=== PATIENT | male | born 1955 | race Caucasian/White ===

== ENCOUNTER 2018-02-08 06:20 | Inpatient (IN) ==
[2018-02-08] MEDS ORDERED: Acetaminophen 500 MG Tablet PO PRN (11:54)
[2018-02-08] MEDS ORDERED: Vancomycin Consult Pharmacy 1 EACH OTHER SCH (12:00)
[2018-02-08] MEDS ORDERED: Dextrose 50% in Water 50 ML Vial IV.PUSH PRN (13:51)
--- NOTE | 2018-02-08 13:56 | P.HP ---
History of Present Illness Primary Care Physician: No Primary Care Physician Chief Complaint: Chest pain History of Present Illness: 62-year-old male with known history of hypertension, hyperlipidemia, diabetes, diabetic neuropathy who presented to the emergency department for evaluation of chest pain. Patient states that his original symptoms started 5 days ago when he started developing in sore spot on his left rib cage in the mid axillary line. It started progressively getting larger and started having increased pain spreading into his anterior chest. He had been using drawing salve on it without any significant improvement. And last night approximately 730 he started developing pain in the middle part of his chest that is radiating into his back with associated nausea, intermittent diaphoresis. Denies any shortness of breath or dyspnea. States that the pain was 8/10 on a pain scale and remained constant since last evening. Patient can follow that the pain was because of the infection in abscess that he has on the left side of the rib cage. Patient did have workup done emergency department and found to have leukocytosis and cellulitis. Cardiac workup was unremarkable. EKG showed normal sinus rhythm. Is recommended that the patient be observed in the hospital for further evaluation and management. - Diagnosis (1) Chest pain (2) Cellulitis of axilla, left (3) Leukocytosis Review of Systems All other systems reviewed negative except as stated in HPI Cardiovascular: Reports chest pain Skin/Breast: Reports change in skin color, Reports redness, Reports skin pain, Reports sores PMFSH - History History Provided By: Patient - Medical History Medical History: Medical History (Last Updated 02/08/18 @ 13:35 by ASHU Esquivel) Varicella keratitis Diabetes High cholesterol History of gallbladder disease Hypertension Neuropathic arthritis due to secondary diabetes - Surgical History Surgical History: Surgical History (Last Updated 02/08/18 @ 06:32 by Carissa Sanon RN) History of surgical procedure on mouth Hx of knee surgery - Family History Family History: Family History (Last Updated 02/08/18 @ 13:35 by ASHU Esquivel) Father Family history of lung cancer Mother Family history of renal failure - Tobacco History Second Hand Smoke Exposure: No Smoking Status: Former smoker - Alcohol History How Often Do You Have a Drink Containing Alcohol: Monthly or less - Substance Use History Substance History: No History of Abuse - Immunization History Tetanus Immunization Year if Known: 2016 Medications and Allergies Active Medications: Active Medications Acetaminophen (Tylenol) 500 mg PO Q4H PRN PRN Reason: HEADACHE Hydrocodone Bitart/Acetaminophen ([place] 7.5/325) 1 tab PO Q4H PRN PRN Reason: PAIN SCALE 1 TO 7 Aspirin (Aspirin) 325 mg PO DAILY [facility] Pharmacy Profile Note (Vancomycin Consult Pharmacy) 0 mls @ 0 mls/hr OTHER UNSCH [facility] Vancomycin HCl 1,900 mg/ (Sodium Chloride) 519 mls @ 250 mls/hr IV.SIG Q18H [facility] Miscellaneous Information [place] [place] Lab Info) 1 each OTHER ONCE ONE Stop: 02/10/18 20:46 Morphine Sulfate (Morphine Inj) 2 mg IV.PUSH Q4H PRN PRN Reason: PAIN 8-10 Nitroglycerin (Nitrostat Sl) 0.4 mg SL Q5M PRN PRN Reason: CHEST PAIN Ondansetron HCl (Zofran Inj) 4 mg IV.PUSH Q6H PRN PRN Reason: NAUSEA Sodium Chloride (Ns Flush) 2 ml IV.FLUSH PRN PRN PRN Reason: FLUSH AFTER USING IV ACCESS Sodium Chloride (Ns Flush) 2 ml IV.FLUSH BID [facility] Allergies Allergy/AdvReac Type Severity Reaction Status Date / Time Penicillins Allergy Severe Anaphylaxis Verified 02/08/18 06:29 Home Medications Medication Instructions Recorded Confirmed Type amlodipine 5 mg PO DAILY 02/08/18 02/08/18 History hydrochlorothiazide 12.5 mg PO DAILY 02/08/18 02/08/18 History lisinopril 30 mg PO DAILY 02/08/18 02/08/18 History metformin 500 mg PO TID 02/08/18 02/08/18 History simvastatin 20 mg PO QPM 02/08/18 02/08/18 History Exam Vital signs: Vital Signs 02/08/18 11:04 Temperature 96.8 F L Pulse Rate 79 Respiratory Rate 20 Blood Pressure 131/71 Pulse Oximetry 96 Intake & Output 02/07/18 02/08/18 02/08/18 18:59 06:59 18:59 Weight 106.3 kg Other: Weight On Admission 106.3 kg Narrative: GENERAL: Well-developed, well-nourished, in no acute distress. alert and orientated HEENT: Head is normocephalic without any lesions or masses noted. Facial features are symmetric. Eyes: Pupils equal round reactive to light. Extraocular muscles are intact. Conjunctivae were clear. Oropharyngeal: Pharynx without any erythema edema. Tongue is midline without deviation. Buccal mucosa is moist without any masses or lesions NECK: Supple without any masses. Trachea midline no deviation. No JVD, no bruits are appreciated CARDIAC: Regular rhythm, regular rate. S1/S2 are heard. No murmurs gallops or rubs. LUNGS: Clear to auscultation bilaterally. No wheeze, rhonchi or rales. No use of accessory muscles on inspiration or expiration. ABDOMEN: Soft, nontender. Nondistended. Bowel sounds heard in all 4 quadrants. No organomegaly or masses. Negative rebound, negative guarding EXTREMITIES: No edema, pulses are equal bilaterally. No cyanosis or clubbing NEUROLOGY: Mood and affect appear appropriate. Cranial nerves II through XII grossly intact. Muscle strength 5/5 in upper and lower extremities bilaterally. Deep tendon reflexes are 2+ in upper and lower extremities bilaterally. SKIN: Left axilla does have a discolored area measuring 1.5 x 2 cm with mild serosanguineous drainage. There is hard granulated tissue noted measuring approximately 3 cm out around the opening with erythema also spreading approximately 10 cm around the area. Caprini VTE Risk Assessment Caprini VTE Risk Assessment: Moderate/High Risk (score >= 2) Caprini Risk Assessment Model: Point Value = 1 Point Value = 2 Point Value = 3 Point Value = 5 Age 41-60 Minor surgery BMI > 25 kg/m2 Swollen legs Varicose veins or History of unexplained or recurrent spontaneous Oral contraceptives or hormone replacement Sepsis (< 1 month) Serious lung disease, including pneumonia (< 1 month) Abnormal pulmonary function Acute myocardial infarction Congestive heart failure (< 1 month) History of inflammatory bowel disease Medical patient at bed rest Age 61-74 Arthroscopic surgery Major open surgery (> 45 min) Laparoscopic surgery (> 45 min) Malignancy Confined to bed (> 72 hours) Immobilizing plaster cast Central venous access Age >= 75 History of VTE Family history of VTE Factor V Leiden Prothrombin [id number] Lupus anticoagulant Anticardiolipin antibodies Elevated serum homocysteine Heparin-induced thrombocytopenia Other congenital or acquired thrombophilia Stroke (< 1 month) Elective arthroplasty Hip, pelvis, or leg fracture Acute spinal cord injury (< 1 month) Prophylaxis Regimen: Total Risk Factor Score Risk Level Prophylaxis Regimen 0-1 Low Early ambulation 2 Moderate Order ONE of the following: *Sequential Compression Device (SCD) *Heparin 5000 units SQ BID 3-4 Higher Order ONE of the following medications: *Heparin 5000 units SQ TID *Enoxaparin/Lovenox 40 mg SQ daily (WT < 150 kg, CrCl > 30 mL/min) *Enoxaparin/Lovenox 30 mg SQ daily (WT < 150 kg, CrCl > 10-29 mL/min) *Enoxaparin/Lovenox 30 mg SQ BID (WT < 150 kg, CrCl > 30 mL/min) AND/OR *Sequential Compression Device (SCD) 5 or more Highest Order ONE of the following medications: *Heparin 5000 units SQ TID (Preferred with Epidurals) *Enoxaparin/Lovenox 40 mg SQ daily (WT < 150 kg, CrCl > 30 mL/min) *Enoxaparin/Lovenox 30 mg SQ daily (WT < 150 kg, CrCl > 10-29 mL/min) *Enoxaparin/Lovenox 30 mg SQ BID (WT < 150 kg, CrCl > 30 mL/min) AND *Sequential Compression Device (SCD) Assessment and Plan - Assessment (1) Chest pain Code(s): R07.9 - Chest pain, unspecified Status: Acute (2) Cellulitis of axilla, left Code(s): L03.112 - Cellulitis of left axilla Status: Acute (3) Leukocytosis Code(s): D72.829 - Elevated white blood cell count, unspecified Status: Acute - Plan Chest pain, atypical -Patient with increased risk factors include age, male, hypertension, hyperlipidemia, diabetes -Patient been ruled out for acute coronary event with serial cardiac enzymes that have remained negative -Serial EKGs reviewed by myself which shows sinus rhythm without any changes -Myocardial perfusion study was performed and indicated -Patient will continue on aspirin, nitroglycerin as needed, [place] and morphine for pain -Continue monitor telemetry -Continue O2 supplementation if needed Left thorax cellulitis with possible underlying abscess -Obtain ultrasound soft tissue -Start vancomycin IV with pharmacy consult -Obtain culture -Obtain blood cultures Leukocytosis -Likely secondary to above infection -No signs of sepsis at this time -Monitor CBC Hypertension, hyperlipidemia -Continue home medications Diabetes -Accu-Cheks with sliding scale insulin -Diabetic diet DVT prevention -Sequential compression devices
[2018-02-08 14:52] LABS: Creatine Kinase 88 U/L (39-308)
[2018-02-08] MEDS ORDERED: Regadenoson Inj 0.4 MG/5 ML Syringe IV.PUSH ONE (15:34)
--- NOTE | 2018-02-08 16:24 | US ---
EXAM DATE: 02/08/2018 3:15 PM EDT AGE/SEX: 62 years / Male INDICATIONS: Redness and pain left inferior axilla. CLINICAL DATA: This is the patient's initial encounter. Patient reports that signs and symptoms have been present for 4 - 6 days and indicates a pain score of 10/10. MEDICAL/SURGICAL HISTORY: . Hypertension. Diabetic. Diabetic neuropathy. . Knee surgery. COMPARISON: No prior exams available for comparison. FINDINGS: Sonographic evaluation of the axilla on the left in the area of palpable concern was performed. Just deep to the skin surface there is a complex area of questionable liquefactive tissue. It measures 4.3 x 2.9 x 1.2 cm. A discrete abscess is not currently observed. There is a tract leading to the overly ing skin surface. CONCLUSION: 1. Phlegmon without discrete abscess currently. There is an overlying tract to the skin surface. Electronically signed by: Keith Felix MD 02/08/2018 4:23 PM EDT
--- NOTE | 2018-02-08 16:58 | NM ---
EXAM DATE: 02/08/2018 4:43 PM EDT AGE/SEX: 62 years / Male INDICATIONS:Angina. . Midchest pain. CLINICAL DATA: This is the patient's initial encounter. Patient reports that signs and symptoms have been present for 1 day and indicates a pain score of 8/10. MEDICAL/SURGICAL HISTORY: Diabetes mellitus type II. Hypertension. . Knee surgery. COMPARISON: No prior exams available for comparison. DOSE: 11 mCi Tc 99m Myoview at rest 35 mCi [id number] at stress 0.4 mg Lexiscan STRESS SYMPTOMS: None. EJECTION FRACTION: 52 % TECHNIQUE: The patient underwent pharmacologic stress with infusion of prescribed dose. Continuous ECG tracing was monitored during stress. Gated SPECT imaging was performed after stress and conventi onal SPECT imaging was performed at rest. The examination was performed on a SPECT/CT scanner, both attenuation and non-corrected datasets were reviewed. FINDINGS: Distribution: The maximum perfused segment at stress is in the lateral wall. Perfusion Study: The pattern of perfusion at stress is within normal limits. Gated Study: There are intact wall motion and wall thickening without hypokinetic or dyskinetic segm ents. The ejection fraction is calculated at 52%. RISK CATEGORY: Low (<1% Annual Motality Rate) CONCLUSION: 1. Negative examination. 2. No evidence of stressed induced or resting perfusion abnormalities. 3. Normal ejection fraction and wall motion. Electronically signed by: Alexandru Mckeon MD 02/08/2018 4:57 PM EDT
[2018-02-08] MEDS: Insulin NovoLOG Aspart Correctional Sugar Inj SQ SCH ×2 (17:21→20:27)
[2018-02-08] MEDS: Vancomycin Inj 1,900 MG in Sodium Chlor 0.9% Inj 500 ML IV.SIG SCH (17:23)
[2018-02-08 17:50] LABS: Creatine Kinase 88 U/L (39-308)
[2018-02-09 06:45] LABS: Baso % (Auto) 0.3 % (0.0-2.0); Eos # (Auto) 0.2 th/mm3 (0.0-0.4); Eos % (Auto) 1.2 % (0.0-4.0); Hematocrit 35.4 % (39.0-51.0); Hemoglobin 12.1 gm/dL (13.0-17.0); Lymph # (Auto) 1.4 th/mm3 (1.0-4.8); Lymph % (Auto) 10.4 % (9.0-44.0); Mean Corpuscular HGB Conc 34.3 % (32.0-36.0); Mean Corpuscular Hemoglobin 30.7 pg (27.0-34.0); Mean Corpuscular Volume 89.4 fL (80.0-100.0); Mean Platelet Volume 8.7 fL (7.0-11.0); Mono # (Auto) 1.5 th/mm3 (0.0-0.9); Mono % (Auto) 11.7 % (0.0-8.0); Neut % (Auto) 76.4 % (16.0-70.0); Platelet Count 358 th/mm3 (150-450); Red Blood Count 3.95 mil/mm3 (4.50-5.90); Red Cell Distribution Width 12.2 % (11.6-17.2); White Blood Count 13.1 th/mm3 (4.0-11.0)
[2018-02-09 07:45] LABS: Potassium 3.2 meq/L (3.5-5.1)
[2018-02-09 07:47] LABS: Calcium 8.1 mg/dL (8.5-10.1)
[2018-02-09 07:48] LABS: Carbon Dioxide 27.4 meq/L (21.0-32.0)
[2018-02-09] MEDS: Insulin NovoLOG Aspart Correctional Sugar Inj SQ SCH ×4 (08:11→21:11)
--- NOTE | 2018-02-09 08:40 | P.PN ---
Subjective Interval history: 62-year-old male seen in follow-up today on chest pain, left axilla abscess. Patient no longer experiencing any active chest pain. However he states that the area in the left thorax lacks axilla is significantly getting bigger with unbearable pain. Vital signs are stable, patient remains afebrile Physical Exam Vital signs: Vital Signs 02/08/18 11:04 02/08/18 15:21 02/08/18 20:00 Temperature 96.8 F L 96.8 F L 96.6 F L Pulse Rate 79 76 77 Respiratory Rate 20 20 18 Blood Pressure 131/71 128/65 155/88 H Pulse Oximetry 96 96 95 02/08/18 20:30 02/09/18 00:00 02/09/18 07:47 Temperature 98.8 F 99.3 F Pulse Rate 76 82 Respiratory Rate 18 18 Blood Pressure 114/64 130/75 Pulse Oximetry 95 95 98 02/09/18 07:48 Temperature Pulse Rate Respiratory Rate Blood Pressure Pulse Oximetry 95 Intake & Output 02/08/18 02/09/18 02/09/18 18:59 06:59 18:59 Intake Total 240 / 240 1759 / 1759 Balance 240 / 240 1759 / 1759 Weight 106.3 kg 106.4 kg Intake: IV 1519 / 1519 NS + KCl 20 mEq Inj 1,000 ML @ 1000 / 1000 84 mls/hr IV.CONT .[id number] [facility] Rx#:[id number] Vancomycin Inj 1,900 MG In NS 519 / 519 Inj 500 ML @ 250 mls/hr IV.SIG Q18H [facility] Rx#:[id number] Oral 240 / 240 240 / 240 Other: # Voids 2 1 Weight On Admission 106.3 kg Narrative: GENERAL: Well-developed, well-nourished, in no acute distress. alert and orientated HEENT: Head is normocephalic without any lesions or masses noted. Facial features are symmetric. Eyes: Extraocular muscles are intact. Conjunctivae were clear. NECK: Supple without any masses. Trachea midline no deviation. No JVD, CARDIAC: Regular rhythm, regular rate. S1/S2 are heard. No murmurs gallops or rubs. LUNGS: Clear to auscultation bilaterally. No wheeze, rhonchi or rales. No use of accessory muscles on inspiration or expiration. ABDOMEN: Soft, nontender. Nondistended. Bowel sounds heard in all 4 quadrants. No organomegaly or masses. Negative rebound, negative guarding EXTREMITIES: No edema, pulses are equal bilaterally. No cyanosis or clubbing NEUROLOGY: Mood and affect appear appropriate. Cranial nerves II through XII grossly intact. Moving all extremities, speech is clear SKIN: Left axilla does have a discolored area measuring 1.5 x 2 cm with mild serosanguineous drainage. There is hard granulated tissue which has significantly gotten worse and measuring approximately 6 cm. No significant fluctuant area was appreciated. Erythema surrounding the area has significantly improved Results - Labs CBC & Chem 7: 02/09/18 05:25 02/09/18 05:25 Laboratory Results - last 24 hr 02/08/18 02/08/18 02/08/18 13:01 13:47 16:38 CBC w Diff WBC RBC Hgb Hct MCV MCH MCHC RDW Plt Count MPV Neut % (Auto) Lymph % (Auto) [place] % (Auto) Eos % (Auto) Baso % (Auto) Neut # (Auto) Lymph # (Auto) [place] # (Auto) Eos # (Auto) Baso # (Auto) WBC Differential Differential Comment Sodium Potassium Chloride Carbon Dioxide Anion Gap BUN Creatinine Estimated GFR POC Glucose 171 H 201 H Random Glucose Calcium Total Creatine Kinase 88 Troponin I Less than 0.02 L 02/08/18 02/08/18 02/09/18 17:05 20:26 05:25 CBC w Diff WBC RBC Hgb Hct MCV MCH MCHC RDW Plt Count MPV Neut % (Auto) Lymph % (Auto) [place] % (Auto) Eos % (Auto) Baso % (Auto) Neut # (Auto) Lymph # (Auto) [place] # (Auto) Eos # (Auto) Baso # (Auto) WBC Differential Differential Comment Sodium 139 Potassium 3.2 L Chloride 104 Carbon Dioxide 27.4 Anion Gap 8 BUN 16 Creatinine 0.95 Estimated GFR 80 L POC Glucose 199 H Random Glucose 147 H Calcium 8.1 L Total Creatine Kinase 88 Troponin I Less than 0.02 L 02/09/18 02/09/18 05:25 07:56 CBC w Diff Auto diff final WBC 13.1 H RBC 3.95 L Hgb 12.1 L Hct 35.4 L MCV 89.4 MCH 30.7 MCHC 34.3 RDW 12.2 Plt Count 358 MPV 8.7 Neut % (Auto) 76.4 H Lymph % (Auto) 10.4 [place] % (Auto) 11.7 H Eos % (Auto) 1.2 Baso % (Auto) 0.3 Neut # (Auto) 10.0 H Lymph # (Auto) 1.4 [place] # (Auto) 1.5 H Eos # (Auto) 0.2 Baso # (Auto) 0.0 WBC Differential . Differential Comment . Sodium Potassium Chloride Carbon Dioxide Anion Gap BUN Creatinine Estimated GFR POC Glucose 160 H Random Glucose Calcium Total Creatine Kinase Troponin I - Imaging Impressions Myocardial Perfusion Scan Nuc Med 02/08/18 00:00 CONCLUSION: 1. Negative examination. 2. No evidence of stressed induced or resting perfusion abnormalities. 3. Normal ejection fraction and wall motion. Soft Tissue Ultrasound 02/08/18 00:00 CONCLUSION: 1. Phlegmon without discrete abscess currently. There is an overlying tract to the skin surface. Assessment and Plan - Assessment (1) Chest pain Code(s): R07.9 - Chest pain, unspecified Status: Inactive (2) Cellulitis of axilla, left Code(s): L03.112 - Cellulitis of left axilla Status: Inactive (3) Leukocytosis Code(s): D72.829 - Elevated white blood cell count, unspecified Status: Acute - Plan Left thorax mass with cellulitis, worsening -Initial soft tissue ultrasound shows phlegmon without any abscess, due to the size worsening and more painful we obtained another ultrasound of the soft tissue which shows a heterogeneous subcutaneous collection that has increased in size since yesterday. -We will consult general surgery for further evaluation and management -Continue vancomycin IV with pharmacy consult -Wound culture with MRSA -Blood cultures negative for 1 day Leukocytosis, improving -Likely secondary to above infection -No signs of sepsis at this time -Monitor CBC Chest pain, atypical, resolved -Patient with increased risk factors include age, male, hypertension, hyperlipidemia, diabetes -Patient been ruled out for acute coronary event with serial cardiac enzymes that have remained negative -Serial EKGs reviewed by myself which shows sinus rhythm without any changes -Myocardial perfusion study was performed and indicated -Patient will continue on aspirin, nitroglycerin as needed, [place] and morphine for pain -Continue monitor telemetry -Continue O2 supplementation if needed Hypertension, hyperlipidemia -Continue home medications Diabetes -Accu-Cheks with sliding scale insulin -Diabetic diet DVT prevention -Sequential compression devices
[2018-02-09] MEDS ORDERED: Aspirin 325 MG Tablet PO SCH (09:00)
--- NOTE | 2018-02-09 09:35 | US ---
EXAM DATE: 02/09/2018 9:21 AM EDT AGE/SEX: 62 years / Male INDICATIONS: Enlarged mass left inferior axilla. CLINICAL DATA: This is the patient's subsequent encounter. Patient reports that signs and symptoms h ave been present for 4 - 6 days and indicates a pain score of 7/10. MEDICAL/SURGICAL HISTORY: . Hypertension. Diabetic. Diabetic neuropathy. . Knee surgery. COMPARISON: [facility], US SOFT TISSUE, 02/08/2018. . FINDINGS: Grayscale and color Doppler imaging was performed of the soft tissues in the inferior left axilla. Im ages document skin thickening with a heterogeneous subcutaneous hypoechoic area measuring approximate ly 4.6 x 5.0 x 1.2 cm. There is a questionable subtle tract extending to the skin surface. Color Dopp ler imaging demonstrates no significant hyperemia. This area measured approximately 4.3 x 2.9 x 1.2 c m on yesterday's ultrasound. CONCLUSION: Heterogeneous subcutaneous collection has increased in size since yesterday's examination. Again, it does not appear well organized for percutaneous drainage. The appearance is suspicious for infection. Electronically signed by: Huber Wilkins MD 02/09/2018 9:34 AM EDT
[2018-02-09 10:25] LABS: Chol/HDL Ratio 2.43 Ratio; HDL Cholesterol 39.9 mg/dL (40.0-60.0)
[2018-02-09] MEDS: Vancomycin Inj 1,900 MG in Sodium Chlor 0.9% Inj 500 ML IV.SIG SCH (11:05)
--- NOTE | 2018-02-09 16:47 | P.CONGS ---
HPI Gen Surgery Consult Note Consult date: 02/09/18 Reason for consult: other (LEFT chest wound) Requesting physician: Bandar Spicer Narrative: 62 year old male with a past medical history of hypertension, dyslipidemia, diabetes mellitus and neuropathy who presented to the [facility] ED with chest pain. He reports a small raise red bump on his LEFT midaxillary line about 5 days prior to admission. He reports no trauma to the area. He tried to express fluid from the area but with no success. A cardiac workup was completed but negative for any ischemia. An US of the midaxillary area was completed with just phlegmon like changes without define abscess. The area increased in size over the last 24 hours as well as an increase in pain. There is a small pinpoint hole in the wound. A culture was obtained and positive for MRSA. A repeat US was completed today which shows an increase in the size but not amendable to percutaneous drainage. The patient denies any fevers. He has been started on vancomycin. <Yessenia Liriano - Last Filed: 02/09/18 16:52> Review of Systems Constitutional: Denies body ache(s), Denies chills, Denies fever(s) Eyes: Denies blurry vision, Denies bulging eyes Ears, Nose, Mouth, and Throat: Denies abnormal hearing Cardiovascular: Reports chest pain (on admission), Denies foot swelling, Denies generalized swelling, Denies shortness of breath Respiratory: Denies chest congestion, Denies cough Gastrointestinal: Denies abdominal pain, Denies nausea, Denies vomiting Genitourinary: Denies urinary incontinence Musculoskeletal: Denies abnormal walking, Denies joint swelling, Denies limited joint movement Skin/Breast: Reports sores (LEFT chest wall) Neurologic: Denies lack of coordination, Denies localized weakness Psychiatric: Denies abnormal sleep pattern, Denies anxiety, Denies depression Endocrine: Denies cold intolerance, Denies heat intolerance Hematologic/Lymphatic: Denies easy bleeding Allergic/Immunologic: Denies GI upset with certain foods <Yessenia Liriano - Last Filed: 02/09/18 16:52> PMF - History History Provided By: Patient - Medical History Medical History: Medical History (Last Reviewed 02/09/18 @ 17:02 by SALLY Nevarez) Varicella keratitis Diabetes High cholesterol History of gallbladder disease Hypertension Neuropathic arthritis due to secondary diabetes - Surgical History Surgical History: Surgical History (Last Updated 02/09/18 @ 16:54 by SALLY Nevarez) Hx laparoscopic cholecystectomy History of surgical procedure on mouth Hx of knee surgery - Family History Family History: Family History (Last Updated 02/08/18 @ 13:35 by ASHU Esquivel) Father Family history of lung cancer Mother Family history of renal failure - Tobacco History Second Hand Smoke Exposure: No Smoking Status: Former smoker - Alcohol History How Often Do You Have a Drink Containing Alcohol: Monthly or less - Substance Use History Substance History: No History of Abuse - Travel History Recent Travel in the [place] Within the Last 8 Weeks: No Recent Travel Out of the Country Within the Last 8 Weeks: No - Immunization History Tetanus Immunization Year if Known: 2016 <Yessenia Liriano - Last Filed: 02/09/18 16:52> - Medical History Medical History: Medical History (Last Updated 02/10/18 @ 09:13 by Jayesh Waters MD) History of gallbladder disease (Acute) Varicella keratitis Diabetes High cholesterol Hypertension Neuropathic arthritis due to secondary diabetes - Surgical History Surgical History: Surgical History (Last Updated 02/09/18 @ 16:54 by SALLY Nevarez) Hx laparoscopic cholecystectomy History of surgical procedure on mouth Hx of knee surgery - Family History Family History: Family History (Last Updated 02/08/18 @ 13:35 by ASHU Esquivel) Father Family history of lung cancer Mother Family history of renal failure <Jayesh Waters - Last Filed: 02/10/18 09:14> Medications and Allergies Active Medications: Active Medications Acetaminophen (Tylenol) 500 mg PO Q4H PRN PRN Reason: HEADACHE Hydrocodone Bitart/Acetaminophen (Buckner 7.5/325) 1 tab PO Q4H PRN PRN Reason: PAIN SCALE 1 TO 7 Last Admin: 02/09/18 07:49 Dose: 1 tab Aspirin (Aspirin) 325 mg PO DAILY [facility] Last Admin: 02/09/18 08:11 Dose: 325 mg Dextrose (D50w Vial) 50 ml IV.PUSH UNSCH PRN PRN Reason: PER HYPOGLYCEMIA PROTOCOL Glucagon (Glucagon Inj) 1 mg OTHER PRN PRN PRN Reason: for Hypoglycemia Protocol Pharmacy Profile Note (Vancomycin Consult Pharmacy) 0 mls @ 0 mls/hr OTHER UNSCH [facility] Vancomycin HCl 1,900 mg/ (Sodium Chloride) 519 mls @ 250 mls/hr IV.SIG Q18H [facility] Last Infusion: 02/09/18 13:10 Dose: Infused Potassium Chloride/Sodium Chloride (Ns + Kcl 20 Meq Inj) 1,000 mls @ 84 mls/hr IV.CONT .[id number] [facility] Last Admin: 02/09/18 05:22 Dose: 84 mls/hr Insulin Aspart (Novolog Insulin Correctional Sugar Inj) 0 unit SQ ACHS [facility]; Protocol Last Admin: 02/09/18 11:47 Dose: 1 unit Miscellaneous Information ([facility] [place] [facility] Ordered Lab Info) 1 each OTHER ONCE ONE Stop: 02/10/18 20:46 Morphine Sulfate (Morphine Inj) 2 mg IV.PUSH Q4H PRN PRN Reason: PAIN 8-10 Nitroglycerin (Nitrostat Sl) 0.4 mg SL Q5M PRN PRN Reason: CHEST PAIN Ondansetron HCl (Zofran Inj) 4 mg IV.PUSH Q6H PRN PRN Reason: NAUSEA Sodium Chloride (Ns Flush) 2 ml IV.FLUSH PRN PRN PRN Reason: FLUSH AFTER USING IV ACCESS Sodium Chloride (Ns Flush) 2 ml IV.FLUSH BID [facility] Last Admin: 02/09/18 11:15 Dose: Not Given <Yessenia Liriano - Last Filed: 02/09/18 16:52> Active Medications: Active Medications Acetaminophen (Tylenol) 500 mg PO Q4H PRN PRN Reason: HEADACHE Hydrocodone Bitart/Acetaminophen (Buckner 7.5/325) 1 tab PO Q4H PRN PRN Reason: PAIN SCALE 1 TO 7 Last Admin: 02/10/18 02:19 Dose: 1 tab Amlodipine Besylate (Norvasc) 5 mg PO DAILY [facility] Aspirin (Aspirin) 325 mg PO DAILY [facility] Last Admin: 02/09/18 08:11 Dose: 325 mg Chlorhexidine Gluconate (Chlorhexidine 2% Cloth) 3 pack 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 [facility] Stop: 02/13/18 08:29 Dextrose (D50w Vial) 50 ml IV.PUSH UNSCH PRN PRN Reason: PER HYPOGLYCEMIA PROTOCOL Glucagon (Glucagon Inj) 1 mg OTHER PRN PRN PRN Reason: for Hypoglycemia Protocol Hydrochlorothiazide (Microzide) 12.5 mg PO DAILY [facility] Pharmacy Profile Note (Vancomycin Consult Pharmacy) 0 mls @ 0 mls/hr OTHER UNSCH [facility] Vancomycin HCl 1,900 mg/ (Sodium Chloride) 519 mls @ 250 mls/hr IV.SIG Q18H [facility] Last Infusion: 02/10/18 06:40 Dose: Infused Potassium Chloride/Sodium Chloride (Ns + Kcl 20 Meq Inj) 1,000 mls @ 84 mls/hr IV.CONT .[id number] [facility] Last Infusion: 02/09/18 18:19 Dose: Infused Lactated Ringer's (Lr 1000 Ml Inj) 1,000 mls @ 30 mls/hr IV.SIG .Q24H [facility] Stop: 02/13/18 08:29 Last Admin: 02/10/18 07:05 Dose: 30 mls/hr Sodium Chloride (Ns Inj) 500 mls @ 30 mls/hr IV.SIG .Q10H [facility] Stop: 02/13/18 08:29 Insulin Aspart (Novolog Insulin Correctional Sugar Inj) 0 unit SQ ACHS [facility]; Protocol Last Admin: 02/10/18 07:24 Dose: Not Given Lisinopril (Prinivil) 30 mg PO DAILY [facility] Metoprolol Tartrate (Lopressor) 25 mg PO SLATE WORKER [facility] Stop: 02/13/18 08:29 Miscellaneous Information ([facility] Ordered Lab Info) 1 each OTHER ONCE ONE Stop: 02/10/18 20:46 Morphine Sulfate (Morphine Inj) 2 mg IV.PUSH Q4H PRN PRN Reason: PAIN 8-10 Nitroglycerin (Nitrostat Sl) 0.4 mg SL Q5M PRN PRN Reason: CHEST PAIN Ondansetron HCl (Zofran Inj) 4 mg IV.PUSH Q6H PRN PRN Reason: NAUSEA Povidone Iodine (Betadine 5% Antisepsis Kit) 1 applicatio EACH NARE SLATE WORKER [facility] Stop: 02/13/18 08:29 Pravastatin Sodium (Pravachol) 40 mg PO QPM [facility] Last Admin: 02/09/18 18:16 Dose: 40 mg Sodium Chloride (Ns Flush) 2 ml IV.FLUSH PRN PRN PRN Reason: FLUSH AFTER USING IV ACCESS Sodium Chloride (Ns Flush) 2 ml IV.FLUSH BID [facility] Last Admin: 02/09/18 21:12 Dose: Not Given <Jayesh Waters - Last Filed: 02/10/18 09:14> Allergies Allergy/AdvReac Type Severity Reaction Status Date / Time Penicillins Allergy Severe Anaphylaxis Verified 02/10/18 07:22 Home Medications Medication Instructions Recorded Confirmed Type amlodipine 5 mg PO DAILY 02/08/18 02/09/18 History hydrochlorothiazide 12.5 mg PO DAILY 02/08/18 02/09/18 History lisinopril 30 mg PO DAILY 02/08/18 02/09/18 History metformin 500 mg PO TID 02/08/18 02/09/18 History simvastatin [Zocor] 20 mg PO QPM 02/08/18 02/09/18 History Exam Vital signs: Vital Signs 02/08/18 20:00 02/08/18 20:30 02/09/18 00:00 Temperature 96.6 F L 98.8 F Pulse Rate 77 76 Respiratory Rate 18 18 Blood Pressure 155/88 H 114/64 Pulse Oximetry 95 95 95 02/09/18 07:47 02/09/18 07:48 02/09/18 08:19 Temperature 99.3 F Pulse Rate 82 Respiratory Rate 18 18 Blood Pressure 130/75 Pulse Oximetry 98 95 02/09/18 08:41 02/09/18 12:00 02/09/18 16:00 Temperature 97.7 F 98.8 F Pulse Rate 82 73 Respiratory Rate 18 18 18 Blood Pressure 136/83 145/85 H Pulse Oximetry 98 96 Intake & Output 02/08/18 02/09/18 02/09/18 18:59 06:59 18:59 Intake Total 240 / 240 1759 / 1759 519 / 519 Balance 240 / 240 1759 / 1759 519 / 519 Weight 106.3 kg 106.4 kg Intake: IV 1519 / 1519 519 / 519 NS + KCl 20 mEq Inj 1,000 ML @ 1000 / 1000 84 mls/hr IV.CONT .[id number] [facility] Rx#:[id number] Vancomycin Inj 1,900 MG In NS 519 / 519 519 / 519 Inj 500 ML @ 250 mls/hr IV.SIG Q18H [facility] Rx#:[id number] Oral 240 / 240 240 / 240 Other: # Voids 2 1 Weight On Admission 106.3 kg Narrative: GENERAL: Very pleasant 62 year old male resting in bed in mild acute distress secondary to pain. SKIN: LEFT midaxillary region: large area of red indurated area; small pin point hole in wound with thick yellow drainage; unable to drain anything; area extremely tender; faint redness tracts to scapular area. HEAD: Atraumatic. Normocephalic. EYES: Pupils equal and round. No scleral icterus. No injection or drainage. ENT: No nasal bleeding or discharge. Mucous membranes pink and moist. NECK: Trachea midline. CARDIOVASCULAR: Regular rate and rhythm. RESPIRATORY: No accessory muscle use. Clear to auscultation. Breath sounds equal bilaterally. GASTROINTESTINAL: Abdomen soft, non-tender, nondistended. . MUSCULOSKELETAL: Extremities without clubbing, cyanosis, or edema. No obvious deformities. NEUROLOGICAL: Awake and alert. No obvious cranial nerve deficits. Motor grossly within normal limits. Five out of 5 muscle strength in the arms and legs. Normal speech. PSYCHIATRIC: Appropriate mood and affect; insight and judgment normal. <Yessenia Liriano - Last Filed: 02/09/18 16:52> Vital signs: Vital Signs 02/09/18 12:00 02/09/18 16:00 02/09/18 17:24 Temperature 97.7 F 98.8 F Pulse Rate 82 73 Respiratory Rate 18 18 18 Blood Pressure 136/83 145/85 H Pulse Oximetry 98 96 02/09/18 20:12 02/10/18 00:00 Temperature 98.1 F 96.9 F L Pulse Rate 70 69 Respiratory Rate 18 Blood Pressure 138/84 133/80 Pulse Oximetry 95 94 L Intake & Output 02/09/18 02/10/18 02/10/18 18:59 06:59 18:59 Intake Total 2819 / 2819 1259 / 1259 Balance 2819 / 2819 1259 / 1259 Weight 106.4 kg Intake: IV 2519 / 2519 1019 / 1019 NS + KCl 20 mEq Inj 1,000 ML @ 1999 / 1999 84 mls/hr IV.CONT .[id number] [facility] Rx#:[id number] Vancomycin Inj 1,900 MG In NS 519 / 519 1019 / 1019 Inj 500 ML @ 250 mls/hr IV.SIG Q18H [facility] Rx#:[id number] Oral 300 / 300 240 / 240 Other: # Voids 2 2 Date of Last Bowel Movement 02/09/18 - Routine Chest/Breast/Axilla Exam Axillae: Present: tenderness, swelling, erythema Comments: Left anterior axillary line; approx 6 x 15 cm size with pinhole drainage purulent material <Jayesh Waters - Last Filed: 02/10/18 09:14> Results - Labs 02/09/18 05:25 02/09/18 05:25 Abnormal lab results 02/08/18 02/08/18 02/08/18 Range/Units 16:38 17:05 20:26 WBC (4.0-11.0) th/mm3 RBC (4.50-5.90) mil/mm3 Hgb (13.0-17.0) gm/dL Hct (39.0-51.0) % Neut % (Auto) (16.0-70.0) % Otero % (Auto) (0.0-8.0) % Neut # (Auto) (1.8-7.7) th/mm3 Otero # (Auto) (0.0-0.9) th/mm3 Potassium (3.5-5.1) meq/L Estimated GFR (>89) mL/min POC Glucose 201 H 199 H (68-110) mg/dl Random Glucose (74-106) mg/dL Calcium (8.5-10.1) mg/dL Troponin I Less than 0.02 L (0.02-0.05) ng/mL Cholesterol (120-200) mg/dL HDL Cholesterol (40.0-60.0) mg/dL 02/09/18 02/09/18 02/09/18 Range/Units 05:25 05:25 05:25 WBC 13.1 H (4.0-11.0) th/mm3 RBC 3.95 L (4.50-5.90) mil/mm3 Hgb 12.1 L (13.0-17.0) gm/dL Hct 35.4 L (39.0-51.0) % Neut % (Auto) 76.4 H (16.0-70.0) % Otero % (Auto) 11.7 H (0.0-8.0) % Neut # (Auto) 10.0 H (1.8-7.7) th/mm3 Otero # (Auto) 1.5 H (0.0-0.9) th/mm3 Potassium 3.2 L (3.5-5.1) meq/L Estimated GFR 80 L (>89) mL/min POC Glucose (68-110) mg/dl Random Glucose 147 H (74-106) mg/dL Calcium 8.1 L (8.5-10.1) mg/dL Troponin I (0.02-0.05) ng/mL Cholesterol 97 L (120-200) mg/dL HDL Cholesterol 39.9 L (40.0-60.0) mg/dL 02/09/18 02/09/18 Range/Units 07:56 11:37 WBC (4.0-11.0) th/mm3 RBC (4.50-5.90) mil/mm3 Hgb (13.0-17.0) gm/dL Hct (39.0-51.0) % Neut % (Auto) (16.0-70.0) % Otero % (Auto) (0.0-8.0) % Neut # (Auto) (1.8-7.7) th/mm3 Otero # (Auto) (0.0-0.9) th/mm3 Potassium (3.5-5.1) meq/L Estimated GFR (>89) mL/min POC Glucose 160 H 167 H (68-110) mg/dl Random Glucose (74-106) mg/dL Calcium (8.5-10.1) mg/dL Troponin I (0.02-0.05) ng/mL Cholesterol (120-200) mg/dL HDL Cholesterol (40.0-60.0) mg/dL Diabetes panel 02/09/18 02/09/18 Range/Units 05:25 05:25 Sodium 139 (136-145) meq/L Potassium 3.2 L (3.5-5.1) meq/L Chloride 104 (98-107) meq/L Carbon Dioxide 27.4 (21.0-32.0) meq/L BUN 16 (7-18) mg/dL Creatinine 0.95 (0.60-1.30) mg/dL Calcium 8.1 L (8.5-10.1) mg/dL Triglycerides 110 (42-150) mg/dL HDL Cholesterol 39.9 L (40.0-60.0) mg/dL Calcium panel 02/09/18 Range/Units 05:25 Calcium 8.1 L (8.5-10.1) mg/dL Pituitary panel 02/09/18 Range/Units 05:25 Sodium 139 (136-145) meq/L Potassium 3.2 L (3.5-5.1) meq/L Chloride 104 (98-107) meq/L Carbon Dioxide 27.4 (21.0-32.0) meq/L BUN 16 (7-18) mg/dL Creatinine 0.95 (0.60-1.30) mg/dL Calcium 8.1 L (8.5-10.1) mg/dL Adrenal panel 02/09/18 Range/Units 05:25 Sodium 139 (136-145) meq/L Potassium 3.2 L (3.5-5.1) meq/L Chloride 104 (98-107) meq/L Carbon Dioxide 27.4 (21.0-32.0) meq/L BUN 16 (7-18) mg/dL Creatinine 0.95 (0.60-1.30) mg/dL Calcium 8.1 L (8.5-10.1) mg/dL All other labs normal. - Imaging Additional studies: LEFT axillary US x2 <Yessenia Liriano - Last Filed: 02/09/18 16:52> - Labs 02/10/18 06:13 02/10/18 06:09 Abnormal lab results 02/09/18 02/09/18 02/09/18 Range/Units 05:25 11:37 16:57 RBC (4.50-5.90) mil/mm3 Hgb (13.0-17.0) gm/dL Hct (39.0-51.0) % Neut % (Auto) (16.0-70.0) % Otero % (Auto) (0.0-8.0) % Neut # (Auto) (1.8-7.7) th/mm3 Otero # (Auto) (0.0-0.9) th/mm3 Chloride (98-107) meq/L POC Glucose 167 H 143 H (68-110) mg/dl Random Glucose (74-106) mg/dL Calcium (8.5-10.1) mg/dL Cholesterol 97 L (120-200) mg/dL HDL Cholesterol 39.9 L (40.0-60.0) mg/dL 02/09/18 02/10/18 02/10/18 Range/Units 21:07 06:09 06:13 RBC 3.73 L (4.50-5.90) mil/mm3 Hgb 11.4 L (13.0-17.0) gm/dL Hct 34.3 L (39.0-51.0) % Neut % (Auto) 77.5 H (16.0-70.0) % Otero % (Auto) 10.0 H (0.0-8.0) % Neut # (Auto) 8.4 H (1.8-7.7) th/mm3 Otero # (Auto) 1.1 H (0.0-0.9) th/mm3 Chloride 108 H (98-107) meq/L POC Glucose 205 H (68-110) mg/dl Random Glucose 163 H (74-106) mg/dL Calcium 8.1 L (8.5-10.1) mg/dL Cholesterol (120-200) mg/dL HDL Cholesterol (40.0-60.0) mg/dL 02/10/18 Range/Units 06:36 RBC (4.50-5.90) mil/mm3 Hgb (13.0-17.0) gm/dL Hct (39.0-51.0) % Neut % (Auto) (16.0-70.0) % Otero % (Auto) (0.0-8.0) % Neut # (Auto) (1.8-7.7) th/mm3 Otero # (Auto) (0.0-0.9) th/mm3 Chloride (98-107) meq/L POC Glucose 151 H (68-110) mg/dl Random Glucose (74-106) mg/dL Calcium (8.5-10.1) mg/dL Cholesterol (120-200) mg/dL HDL Cholesterol (40.0-60.0) mg/dL Diabetes panel 02/09/18 02/10/18 Range/Units 05:25 06:09 Sodium 143 (136-145) meq/L Potassium 4.2 D (3.5-5.1) meq/L Chloride 108 H (98-107) meq/L Carbon Dioxide 29.6 (21.0-32.0) meq/L BUN 14 (7-18) mg/dL Creatinine 0.80 (0.60-1.30) mg/dL Calcium 8.1 L (8.5-10.1) mg/dL Triglycerides 110 (42-150) mg/dL HDL Cholesterol 39.9 L (40.0-60.0) mg/dL Calcium panel 02/10/18 Range/Units 06:09 Calcium 8.1 L (8.5-10.1) mg/dL Pituitary panel 02/10/18 Range/Units 06:09 Sodium 143 (136-145) meq/L Potassium 4.2 D (3.5-5.1) meq/L Chloride 108 H (98-107) meq/L Carbon Dioxide 29.6 (21.0-32.0) meq/L BUN 14 (7-18) mg/dL Creatinine 0.80 (0.60-1.30) mg/dL Calcium 8.1 L (8.5-10.1) mg/dL Adrenal panel 02/10/18 Range/Units 06:09 Sodium 143 (136-145) meq/L Potassium 4.2 D (3.5-5.1) meq/L Chloride 108 H (98-107) meq/L Carbon Dioxide 29.6 (21.0-32.0) meq/L BUN 14 (7-18) mg/dL Creatinine 0.80 (0.60-1.30) mg/dL Calcium 8.1 L (8.5-10.1) mg/dL All other labs normal. <Jayesh Waters - Last Filed: 02/10/18 09:14> Assessment and Plan - Plan 62 year old male with large LEFT midaxillary indurated area; ? abscess -Has been antibiotics for greater than 24 without improvement -Would benefit from I&D and Wound Vac placement in OR -Continue Vancomycin -NPO after MN -Obtain consents -Hold anticoagulation -Discussed procedure with patient including risk and benefits; all questions answered -Thank you for this consult; We will continue to follow Discussed Condition With: Dr. Eric WAKEFIELD Mr. Gagnon <Yessenia Liriano - Last Filed: 02/09/18 16:52> - Plan Significant area induration with drainage and pain; no improvement. Discussed GAR with patient; he agrees to proceed with surgery. - Attending Attestation The exam, history, and the medical decision-making described in the above note were completed with the assistance of the mid-level provider. I reviewed and agree with the findings presented. I attest that I had a [id number] encounter with the patient on the same day, and personally performed and documented my assessment and findings in the medical record. <Jayesh Waters - Last Filed: 02/10/18 09:14>
--- NOTE | 2018-02-09 19:27 | ECG ---
Date Performed: 02/08/2018 Time Performed: 13:09:51 PTAGE: 62 years EKG: Sinus rhythm NONSPECIFIC T-WAVE ABNORMALITY BORDERLINE ECG Since PREVIOUS TRACING , no significant change noted DOCTOR: Eloise Montes Interpretating Date/Time 02/09/2018 19:26:10
--- NOTE | 2018-02-09 19:27 | TR ---
Date Performed: 02/08/2018 Time Performed: 15:58:14 DOCTOR: Eloise Montes DRUG LIST: CLINICAL HISTORY: REASON FOR TEST: REASON FOR ENDING: OBSERVATION: CONCLUSION: Lexiscan stress test was performed under standard four minute protocol. Radionuclid e was injected one minute prior to ending the test. No electrocardiographic abormalities were present to suggest ischemia. Nuclear imaging and interpretation are pending. COMMENTS: No ischemia
--- NOTE | 2018-02-09 19:28 | ECG ---
Date Performed: 02/08/2018 Time Performed: 17:05:19 PTAGE: 62 years EKG: Sinus rhythm NONSPECIFIC T-WAVE ABNORMALITY BORDERLINE ECG Since PREVIOUS TRACING , no significant change noted PREVIOUS TRACIN02/08/2018 13.09 DOCTOR: Eloise Montes Interpretating Date/Time 02/09/2018 19:27:52
[2018-02-10] MEDS: Vancomycin Inj 1,900 MG in Sodium Chlor 0.9% Inj 500 ML IV.SIG SCH ×2 (02:20→21:30)
[2018-02-10 06:33] LABS: Baso % (Auto) 0.3 % (0.0-2.0); Eos # (Auto) 0.3 th/mm3 (0.0-0.4); Eos % (Auto) 2.7 % (0.0-4.0); Hematocrit 34.3 % (39.0-51.0); Hemoglobin 11.4 gm/dL (13.0-17.0); Lymph % (Auto) 9.5 % (9.0-44.0); Mean Corpuscular HGB Conc 33.2 % (32.0-36.0); Mean Corpuscular Hemoglobin 30.5 pg (27.0-34.0); Mean Platelet Volume 7.8 fL (7.0-11.0); Mono # (Auto) 1.1 th/mm3 (0.0-0.9); Neut # (Auto) 8.4 th/mm3 (1.8-7.7); Neut % (Auto) 77.5 % (16.0-70.0); Platelet Count 371 th/mm3 (150-450); Red Blood Count 3.73 mil/mm3 (4.50-5.90); Red Cell Distribution Width 11.8 % (11.6-17.2); White Blood Count 10.8 th/mm3 (4.0-11.0)
[2018-02-10 06:55] LABS: Anion Gap 5 meq/L (5-15); Blood Urea Nitrogen 14 mg/dL (7-18); Calcium 8.1 mg/dL (8.5-10.1); Carbon Dioxide 29.6 meq/L (21.0-32.0); Chloride 108 meq/L (98-107); Glomerular Filtration Rate Greater Than 89 mL/min (>89); Glucose,Random 163 mg/dL (74-106); Potassium 4.2 meq/L (3.5-5.1); Sodium 143 meq/L (136-145)
[2018-02-10] MEDS: Insulin NovoLOG Aspart Correctional Sugar Inj SQ SCH ×4 (07:24→21:52)
[2018-02-10] MEDS ORDERED: Bupivacaine/Epinephrine Inj 0.25% 50 ML Vial ONE (07:34)
[2018-02-10] MEDS ORDERED: fentaNYL Citrate Inj 100 MCG/2 ML Ampul ONE (07:39)
[2018-02-10] MEDS ORDERED: Neomycin/Polymyxin G.U. Irrigant 1 ML Ampul ONE (08:10)
[2018-02-10] MEDS ORDERED: Metoprolol Tartrate 25 MG Tablet PO SCH (08:30)
[2018-02-10] MEDS ORDERED: Chlorhexidine Gluconate 2% 1 Pack (2 Cloths) TOPICAL SCH (08:30)
[2018-02-10] MEDS ORDERED: Sodium Chlor 0.9% Inj 500 ML IV.SIG SCH (09:00)
--- NOTE | 2018-02-10 09:24 | P.OP ---
- Preoperative Diagnosis (1) Abscess of axilla, left - Postoperative Diagnosis (1) Abscess of axilla, left Date of procedure: 02/10/18 Procedure: Incision and drainage of left axillary abscess with debridement of less than 25 cm subcutaneous tissue Placement of negative pressure VAC device Anesthesia: other (Laryngeal mask anesthesia) Surgeon: Jayesh Waters MD Commercial Development Manager: Sanjeev Hameed CFA Estimated blood loss (mL): 75 IV fluids (mL): 400 Pathology: other (Gram Stain, C&S) Operation and Findings: The patient was seen in the holding area and the left side marked by the undersigned and confirmed by the patient. He was taken to the operating room and placed on the operating table in the supine position. After laryngeal mask anesthesia was instituted, he was repositioned with the left side up on a beanbag with an axillary roll. The left anterior axillary region was prepped and draped. Timeout was taken, confirming the correct patient, site, and procedure to be performed. Incision was made directly over the lesion in an oblique fashion. Purulent material was immediately encountered and this was cultured and sent. The area of the wound was then explored with a finger and all loculations were broken up. This was all aspirated and following this bleeding edges were controlled with electrocautery. The wound was irrigated with 3 L of antibiotic irrigation. When this had been completed and loose subcutaneous tissue had been debrided away sharply, the wound VAC was prepared. Less than 25 cm of subcutaneous tissue only was debrided. No skin, muscle or fascia was removed. A small VAC sponge was cut in half and placed into the wound. The dressings were applied over this and suction applied with good seal. The patient was extubated and taken back to the recovery room in stable condition. He tolerated the procedure well. Sponge needle and instrument counts were reported to be correct.
[2018-02-10] MEDS ORDERED: Morphine Sulfate Inj 2 MG/ML Vial IV.PUSH PRN (09:27)
[2018-02-10] MEDS: Morphine Sulfate Inj 2 MG/ML Vial IV.PUSH PRN ×2 (09:40→10:00)
[2018-02-10] MEDS ORDERED: HYDROmorphone PF Inj 2 MG/ML Vial ONE (09:51)
[2018-02-10] MEDS: Lisinopril 10 MG Tablet PO SCH (10:53)
[2018-02-10] MEDS: amLODIPine 5 MG Tablet PO SCH (10:53)
--- NOTE | 2018-02-10 11:08 | P.PN ---
Subjective Interval history: Patient seen and examined today for follow-up on left thorax mass/abscess. Patient did undergo surgical intervention today. He states he is feeling much better afterwards. I did speak with the surgeon who indicated that he placed a wound vacuum which should remain in place until Monday. Further recommendations at that time. Patient vital signs are stable, afebrile. Physical Exam Vital signs: Vital Signs 02/09/18 12:00 02/09/18 16:00 02/09/18 17:24 Temperature 97.7 F 98.8 F Pulse Rate 82 73 Respiratory Rate 18 18 18 Blood Pressure 136/83 145/85 H Pulse Oximetry 98 96 02/09/18 20:12 02/10/18 00:00 02/10/18 09:05 Temperature 98.1 F 96.9 F L 97.9 F Pulse Rate 70 69 77 Respiratory Rate 18 12 Blood Pressure 138/84 133/80 169/83 H Pulse Oximetry 95 94 L 95 02/10/18 09:25 02/10/18 09:40 02/10/18 09:55 Temperature 97.7 F Pulse Rate 70 68 66 Respiratory Rate 16 16 16 Blood Pressure 160/83 H 142/81 H 137/73 Pulse Oximetry 95 95 95 Intake & Output 02/09/18 02/10/18 02/10/18 18:59 06:59 18:59 Intake Total 2819 / 2819 1259 / 1259 1100 / 1100 Balance 2819 / 2819 1259 / 1259 1100 / 1100 Weight 106.4 kg Intake: IV 2519 / 2519 1019 / 1019 400 / 400 NS + KCl 20 mEq Inj 1,000 ML @ 1999 / 1999 84 mls/hr IV.CONT .[id number] [facility] Rx#:[id number] LR 1000 mL Inj 1,000 ML @ 30 400 / 400 mls/hr IV.SIG .Q24H [facility] Rx#: [id number] Vancomycin Inj 1,900 MG In NS 519 / 519 1019 / 1019 Inj 500 ML @ 250 mls/hr IV.SIG Q18H [facility] Rx#:[id number] Oral 300 / 300 240 / 240 Anesthesia Amount 600 / 600 Other 100 / 100 Other: Mode Setting Left Axilla Continuous # Voids 2 2 Date of Last Bowel Movement 02/09/18 Narrative: GENERAL: Well-developed, well-nourished, in no acute distress. alert and orientated HEENT: Head is normocephalic without any lesions or masses noted. Facial features are symmetric. Eyes: Extraocular muscles are intact. Conjunctivae were clear. NECK: Supple without any masses. Trachea midline no deviation. No JVD, CARDIAC: Regular rhythm, regular rate. S1/S2 are heard. No murmurs gallops or rubs. LUNGS: Clear to auscultation bilaterally. No wheeze, rhonchi or rales. No use of accessory muscles on inspiration or expiration. ABDOMEN: Soft, nontender. Nondistended. Bowel sounds heard in all 4 quadrants. No organomegaly or masses. Negative rebound, negative guarding EXTREMITIES: No edema, pulses are equal bilaterally. No cyanosis or clubbing NEUROLOGY: Mood and affect appear appropriate. Cranial nerves II through XII grossly intact. Moving all extremities, speech is clear SKIN: Wound VAC in place in the left axilla/thorax region Results - Labs CBC & Chem 7: 02/10/18 06:13 02/12/18 05:00 Laboratory Results - last 24 hr 02/09/18 02/09/18 02/09/18 11:37 16:57 21:07 CBC w Diff WBC RBC Hgb Hct MCV MCH MCHC RDW Plt Count MPV Neut % (Auto) Lymph % (Auto) [place] % (Auto) Eos % (Auto) Baso % (Auto) Neut # (Auto) Lymph # (Auto) [place] # (Auto) Eos # (Auto) Baso # (Auto) WBC Differential Differential Comment Sodium Potassium Chloride Carbon Dioxide Anion Gap BUN Creatinine Estimated GFR POC Glucose 167 H 143 H 205 H Random Glucose Calcium 02/10/18 02/10/18 02/10/18 06:09 06:13 06:36 CBC w Diff Auto diff final WBC 10.8 RBC 3.73 L Hgb 11.4 L Hct 34.3 L MCV 92.0 MCH 30.5 MCHC 33.2 RDW 11.8 Plt Count 371 MPV 7.8 Neut % (Auto) 77.5 H Lymph % (Auto) 9.5 [place] % (Auto) 10.0 H Eos % (Auto) 2.7 Baso % (Auto) 0.3 Neut # (Auto) 8.4 H Lymph # (Auto) 1.0 [place] # (Auto) 1.1 H Eos # (Auto) 0.3 Baso # (Auto) 0.0 WBC Differential . Differential Comment . Sodium 143 Potassium 4.2 D Chloride 108 H Carbon Dioxide 29.6 Anion Gap 5 BUN 14 Creatinine 0.80 Estimated GFR Greater than 89 POC Glucose 151 H Random Glucose 163 H Calcium 8.1 L Microbiology 02/08/18 16:35 Wound - Axilla Gram Stain - Final 02/08/18 16:35 Wound - Axilla Wound Culture - Final S. aureus MRSA Assessment and Plan - Assessment (1) Chest pain Code(s): R07.9 - Chest pain, unspecified Status: Inactive (2) Cellulitis of axilla, left Code(s): L03.112 - Cellulitis of left axilla Status: Inactive (3) Leukocytosis Code(s): D72.829 - Elevated white blood cell count, unspecified Status: Acute - Plan Left thorax mass with cellulitis -Initial soft tissue ultrasound shows phlegmon without any abscess, due to the size worsening and more painful we obtained another ultrasound of the soft tissue which shows a heterogeneous subcutaneous collection that has increased in size since yesterday. -We will consult general surgery for further evaluation and management -Continue vancomycin IV with pharmacy consult -Wound culture with MRSA -Blood cultures negative for 2 day -General surgery to the patient to OR for incision and drainage, patient has wound VAC in place. Discussed with surgery who recommended maintaining wound VAC until Monday for further evaluation. Leukocytosis, resolved -Likely secondary to above infection -No signs of sepsis at this time -Monitor CBC Chest pain, atypical, resolved -Patient with increased risk factors include age, male, hypertension, hyperlipidemia, diabetes -Patient been ruled out for acute coronary event with serial cardiac enzymes that have remained negative -Serial EKGs reviewed by myself which shows sinus rhythm without any changes -Myocardial perfusion study was performed and indicated -Patient will continue on aspirin, nitroglycerin as needed, [place] and morphine for pain -Continue monitor telemetry -Continue O2 supplementation if needed Hypertension, hyperlipidemia -Continue home medications Diabetes -Accu-Cheks with sliding scale insulin -Diabetic diet DVT prevention -Sequential compression devices
[2018-02-10] MEDS ORDERED: Pharmacy Ordered Lab Info OTHER ONE (20:45)
[2018-02-11] MEDS: Insulin NovoLOG Aspart Correctional Sugar Inj SQ SCH ×4 (07:27→21:11)
[2018-02-11] MEDS: amLODIPine 5 MG Tablet PO SCH (08:38)
[2018-02-11] MEDS: Lisinopril 10 MG Tablet PO SCH (08:38)
--- NOTE | 2018-02-11 08:38 | P.PN ---
Subjective Interval history: Patient seen and examined today for follow-up on left thorax/axilla abscess. Patient did undergo surgical intervention yesterday with incision and drainage. Wound VAC is in place. Anticipate wound VAC maintenance until Monday. Patient states that he has been getting more frequent cephalgia but is controlled with pain medication. Vital signs are stable, patient remains afebrile. Physical Exam Vital signs: Vital Signs 02/10/18 09:05 02/10/18 09:25 02/10/18 09:40 Temperature 97.9 F Pulse Rate 77 70 68 Respiratory Rate 12 16 16 Blood Pressure 169/83 H 160/83 H 142/81 H Pulse Oximetry 95 95 95 02/10/18 09:55 02/10/18 12:00 02/10/18 16:00 Temperature 97.7 F 98.1 F 97.4 F L Pulse Rate 66 60 63 Respiratory Rate 16 21 20 Blood Pressure 137/73 137/76 139/78 Pulse Oximetry 95 98 96 02/10/18 20:00 02/10/18 21:15 02/11/18 00:00 Temperature 98.2 F 97.9 F 96 F L Pulse Rate 63 120 H 63 Respiratory Rate 20 20 20 Blood Pressure 141/93 H 145/81 H 143/93 H Pulse Oximetry 96 97 95 Intake & Output 02/10/18 02/11/18 02/11/18 18:59 06:59 18:59 Intake Total 1100 / 1100 1719 / 1719 Output Total 1220 / 1220 Balance -120 / -120 1719 / 1719 Weight 106.9 kg Intake: IV 400 / 400 1119 / 1119 LR 1000 mL Inj 1,000 ML @ 30 400 / 400 600 / 600 mls/hr IV.SIG .Q24H [facility] Rx#: [id number] Vancomycin Inj 1,900 MG In NS 519 / 519 Inj 500 ML @ 250 mls/hr IV.SIG Q18H [facility] Rx#:[id number] Oral 600 / 600 Anesthesia Amount 600 / 600 Other 100 / 100 Output: Blood Draw 20 / 20 Urine 1200 / 1200 Other: Mode Setting Left Axilla Continuous # Voids 2 # Bowel Movements 1 # Incontinent Bowel Movements 1 Narrative: GENERAL: Well-developed, well-nourished, in no acute distress. alert and orientated HEENT: Head is normocephalic without any lesions or masses noted. Facial features are symmetric. Eyes: Extraocular muscles are intact. Conjunctivae were clear. NECK: Supple without any masses. Trachea midline no deviation. No JVD, CARDIAC: Regular rhythm, regular rate. S1/S2 are heard. No murmurs gallops or rubs. LUNGS: Clear to auscultation bilaterally. No wheeze, rhonchi or rales. No use of accessory muscles on inspiration or expiration. ABDOMEN: Soft, nontender. Nondistended. Bowel sounds heard in all 4 quadrants. No organomegaly or masses. Negative rebound, negative guarding EXTREMITIES: No edema, pulses are equal bilaterally. No cyanosis or clubbing NEUROLOGY: Mood and affect appear appropriate. Cranial nerves II through XII grossly intact. Moving all extremities, speech is clear SKIN: Wound VAC in place in the left axilla/thorax region Results - Labs CBC & Chem 7: 02/10/18 06:13 02/12/18 05:00 Laboratory Results - last 24 hr 02/10/18 02/10/18 02/10/18 13:25 17:19 20:45 POC Glucose 163 H 163 H Vancomycin Trough 9.2 02/10/18 02/11/18 20:51 03:44 POC Glucose 144 H 117 H Vancomycin Trough Microbiology 02/10/18 08:33 Tissue - Axilla Gram Stain - Final 02/08/18 16:35 Wound - Axilla Gram Stain - Final 02/08/18 16:35 Wound - Axilla Wound Culture - Final S. aureus MRSA Assessment and Plan - Assessment (1) Chest pain Code(s): R07.9 - Chest pain, unspecified Status: Inactive (2) Cellulitis of axilla, left Code(s): L03.112 - Cellulitis of left axilla Status: Inactive (3) Leukocytosis Code(s): D72.829 - Elevated white blood cell count, unspecified Status: Acute - Plan Left thorax mass with cellulitis -Initial soft tissue ultrasound shows phlegmon without any abscess, due to the size worsening and more painful we obtained another ultrasound of the soft tissue which shows a heterogeneous subcutaneous collection that has increased in size since yesterday. -We will consult general surgery for further evaluation and management -Continue vancomycin IV with pharmacy consult -Wound culture with MRSA, sensitive to vancomycin -Blood cultures negative for 3 day -General surgery took patient to OR for incision and drainage, patient has wound VAC in place. Discussed with surgery who recommended maintaining wound VAC until Monday for further evaluation. Leukocytosis, resolved -Likely secondary to above infection -No signs of sepsis at this time -Monitor CBC Chest pain, atypical, resolved -Patient with increased risk factors include age, male, hypertension, hyperlipidemia, diabetes -Patient been ruled out for acute coronary event with serial cardiac enzymes that have remained negative -Serial EKGs reviewed by myself which shows sinus rhythm without any changes -Myocardial perfusion study was performed and indicated -Patient will continue on aspirin, nitroglycerin as needed, [place] and morphine for pain -Continue monitor telemetry -Continue O2 supplementation if needed Hypertension, hyperlipidemia -Continue home medications Diabetes -Accu-Cheks with sliding scale insulin -Diabetic diet DVT prevention -Sequential compression devices
[2018-02-11] MEDS: Vancomycin Inj 1,500 MG in Sodium Chlor 0.9% Inj 500 ML IV.SIG SCH ×2 (10:10→21:06)
--- NOTE | 2018-02-11 14:22 | P.PNGS ---
Subjective Patient reports: feels better (still with left axilla pain, no fevers) Physical Exam Vital signs: Vital Signs 02/10/18 16:00 02/10/18 20:00 02/10/18 21:15 Temperature 97.4 F L 98.2 F 97.9 F Pulse Rate 63 63 120 H Respiratory Rate 20 20 20 Blood Pressure 139/78 141/93 H 145/81 H Pulse Oximetry 96 96 97 02/11/18 00:00 02/11/18 08:00 02/11/18 12:00 Temperature 96 F L 98.3 F 97.5 F L Pulse Rate 63 65 62 Respiratory Rate 20 18 18 Blood Pressure 143/93 H 164/88 H 168/98 H Pulse Oximetry 95 95 98 Intake & Output 02/10/18 02/11/18 02/11/18 18:59 06:59 18:59 Intake Total 1100 / 1100 1719 / 1719 1000 / 1000 Output Total 1220 / 1220 Balance -120 / -120 1719 / 1719 1000 / 1000 Weight 106.9 kg Intake: IV 400 / 400 1119 / 1119 1000 / 1000 NS + KCl 20 mEq Inj 1,000 ML @ 1000 / 1000 84 mls/hr IV.CONT .[id number] [facility] Rx#:[id number] LR 1000 mL Inj 1,000 ML @ 30 400 / 400 600 / 600 mls/hr IV.SIG .Q24H [facility] Rx#: [id number] Vancomycin Inj 1,900 MG In NS 519 / 519 Inj 500 ML @ 250 mls/hr IV.SIG Q18H [facility] Rx#:[id number] Oral 600 / 600 Anesthesia Amount 600 / 600 Other 100 / 100 Output: Blood Draw 20 / 20 Urine 1200 / 1200 Other: Mode Setting Left Axilla Continuous Continuous # Voids 2 # Bowel Movements 1 # Incontinent Bowel Movements 1 - Routine Extremities Exam Present: full ROM (left axilla with vac good seal +erythema) Assessment and Plan - Plan s/p I and D left axilla with vac PLAN Reg diet pain control vac sxn change vac monday or monday. possibly needs redibridement pending vac change abx
[2018-02-12 07:00] LABS: Glomerular Filtration Rate Greater Than 89 mL/min (>89)
[2018-02-12] MEDS: Insulin NovoLOG Aspart Correctional Sugar Inj SQ SCH ×4 (08:27→20:19)
[2018-02-12] MEDS: amLODIPine 5 MG Tablet PO SCH (09:26)
[2018-02-12] MEDS: Lisinopril 10 MG Tablet PO SCH (09:27)
--- NOTE | 2018-02-12 09:28 | P.PNGS ---
<DeandraYessenia - Last Filed: 02/12/18 09:26> Subjective Interval history: Resting in bed; pain on LEFT side Physical Exam Vital signs: Vital Signs 02/11/18 12:00 02/11/18 16:00 02/11/18 20:00 Temperature 97.5 F L 96.8 F L 96.7 F L Pulse Rate 62 62 57 L Respiratory Rate 18 18 18 Blood Pressure 168/98 H 171/82 H 161/79 H Pulse Oximetry 98 95 95 02/12/18 00:00 02/12/18 08:00 Temperature 96.2 F L 96 F L Pulse Rate 62 57 L Respiratory Rate 18 20 Blood Pressure 150/78 H 164/92 H Pulse Oximetry 94 L 94 L Intake & Output 02/11/18 02/12/18 02/12/18 18:59 06:59 18:59 Intake Total 1515 / 1515 1715 / 1715 Output Total 950 / 950 450 / 450 Balance 565 / 565 1265 / 1265 Intake: IV 1515 / 1515 1515 / 1515 NS + KCl 20 mEq Inj 1,000 ML @ 1000 / 1000 1000 / 1000 84 mls/hr IV.CONT .[id number] [facility] Rx#:[id number] Vancomycin Inj 1,500 MG In NS 515 / 515 515 / 515 Inj 500 ML @ 250 mls/hr IV.SIG Q12H [facility] Rx#:[id number] Oral 200 / 200 Output: Urine 950 / 950 450 / 450 Other: Mode Setting Left Axilla Continuous Continuous Date of Last Bowel Movement 02/11/18 # Bowel Movements 3 Narrative: Alert and awake Cardio: RRR Resp: CTAB Abd: non tender LEFT midaxillary Wound Vac in place with good seal Assessment and Plan - Plan 62 year old male with large LEFT midaxillary indurated area -POD2 I&D and Wound Vac placement of LEFT midaxillary region -Regular diet -Continue glucose control -Plan for Wound Vac change in OR tomorrow -NPO after MN -Discussed with patient <Jayesh Waters - Last Filed: 02/12/18 12:22> Physical Exam Vital signs: Vital Signs 02/11/18 16:00 02/11/18 20:00 02/12/18 00:00 Temperature 96.8 F L 96.7 F L 96.2 F L Pulse Rate 62 57 L 62 Respiratory Rate 18 18 18 Blood Pressure 171/82 H 161/79 H 150/78 H Pulse Oximetry 95 95 94 L 02/12/18 08:00 Temperature 96 F L Pulse Rate 57 L Respiratory Rate 20 Blood Pressure 164/92 H Pulse Oximetry 94 L Intake & Output 02/11/18 02/12/18 02/12/18 18:59 06:59 18:59 Intake Total 1515 / 1515 1715 / 1715 515 / 515 Output Total 950 / 950 450 / 450 Balance 565 / 565 1265 / 1265 515 / 515 Intake: IV 1515 / 1515 1515 / 1515 515 / 515 NS + KCl 20 mEq Inj 1,000 ML @ 1000 / 1000 1000 / 1000 84 mls/hr IV.CONT .[id number] [facility] Rx#:[id number] Vancomycin Inj 1,500 MG In NS 515 / 515 515 / 515 515 / 515 Inj 500 ML @ 250 mls/hr IV.SIG Q12H [facility] Rx#:[id number] Oral 200 / 200 Output: Urine 950 / 950 450 / 450 Other: Mode Setting Left Axilla Continuous Continuous Date of Last Bowel Movement 02/11/18 # Bowel Movements 3 Assessment and Plan - Plan Still painful when palpated, although erythema is much improved Will need dressing change/debridement in OR for pain control Will need HHC after VAC removed; plan for Monday with daily dressing changes
[2018-02-12] MEDS: Vancomycin Inj 1,500 MG in Sodium Chlor 0.9% Inj 500 ML IV.SIG SCH ×2 (09:30→23:05)
--- NOTE | 2018-02-12 09:40 | P.PN ---
Subjective Interval history: Patient seen and examined today for follow-up on left axilla thorax wound. Patient is sitting up on side of the bed. States that little more painful today than it was yesterday. Plans for surgery to take patient back to the OR tomorrow for wound VAC change. Patient remains afebrile. Physical Exam Vital signs: Vital Signs 02/11/18 12:00 02/11/18 16:00 02/11/18 20:00 Temperature 97.5 F L 96.8 F L 96.7 F L Pulse Rate 62 62 57 L Respiratory Rate 18 18 18 Blood Pressure 168/98 H 171/82 H 161/79 H Pulse Oximetry 98 95 95 02/12/18 00:00 02/12/18 08:00 Temperature 96.2 F L 96 F L Pulse Rate 62 57 L Respiratory Rate 18 20 Blood Pressure 150/78 H 164/92 H Pulse Oximetry 94 L 94 L Intake & Output 02/11/18 02/12/18 02/12/18 18:59 06:59 18:59 Intake Total 1515 / 1515 1715 / 1715 Output Total 950 / 950 450 / 450 Balance 565 / 565 1265 / 1265 Intake: IV 1515 / 1515 1515 / 1515 NS + KCl 20 mEq Inj 1,000 ML @ 1000 / 1000 1000 / 1000 84 mls/hr IV.CONT .[id number] [facility] Rx#:[id number] Vancomycin Inj 1,500 MG In NS 515 / 515 515 / 515 Inj 500 ML @ 250 mls/hr IV.SIG Q12H [facility] Rx#:[id number] Oral 200 / 200 Output: Urine 950 / 950 450 / 450 Other: Mode Setting Left Axilla Continuous Continuous Date of Last Bowel Movement 02/11/18 # Bowel Movements 3 Narrative: GENERAL: Well-developed, well-nourished, in no acute distress. alert and orientated HEENT: Head is normocephalic without any lesions or masses noted. Facial features are symmetric. Eyes: Extraocular muscles are intact. Conjunctivae were clear. NECK: Supple without any masses. Trachea midline no deviation. No JVD, CARDIAC: Regular rhythm, regular rate. S1/S2 are heard. No murmurs gallops or rubs. LUNGS: Clear to auscultation bilaterally. No wheeze, rhonchi or rales. No use of accessory muscles on inspiration or expiration. ABDOMEN: Soft, nontender. Nondistended. Bowel sounds heard in all 4 quadrants. No organomegaly or masses. Negative rebound, negative guarding EXTREMITIES: No edema, pulses are equal bilaterally. No cyanosis or clubbing NEUROLOGY: Mood and affect appear appropriate. Cranial nerves II through XII grossly intact. Moving all extremities, speech is clear SKIN: Wound VAC in place in the left axilla/thorax region Results - Labs CBC & Chem 7: 02/10/18 06:13 02/12/18 05:00 Laboratory Results - last 24 hr 02/11/18 02/11/18 02/11/18 11:25 15:25 21:10 Creatinine Estimated GFR POC Glucose 185 H 145 H 134 H 02/12/18 02/12/18 05:00 08:26 Creatinine 0.77 Estimated GFR Greater than 89 POC Glucose 144 H Microbiology 02/10/18 08:33 Tissue - Axilla Gram Stain - Final 02/10/18 08:33 Tissue - Axilla Wound Culture - Final S. aureus MRSA Assessment and Plan - Assessment (1) Chest pain Code(s): R07.9 - Chest pain, unspecified Status: Inactive (2) Cellulitis of axilla, left Code(s): L03.112 - Cellulitis of left axilla Status: Inactive (3) Leukocytosis Code(s): D72.829 - Elevated white blood cell count, unspecified Status: Acute - Plan Left thorax mass with cellulitis -Initial soft tissue ultrasound shows phlegmon without any abscess, due to the size worsening and more painful we obtained another ultrasound of the soft tissue which shows a heterogeneous subcutaneous collection that has increased in size since yesterday. -We will consult general surgery for further evaluation and management -Continue vancomycin IV with pharmacy consult -Wound culture with MRSA, sensitive to vancomycin -Blood cultures negative for 3 day -General surgery took patient to OR for incision and drainage, patient has wound VAC in place. Discussed with surgery who plans on taking patient back to the OR tomorrow for wound VAC change. Leukocytosis, resolved -Likely secondary to above infection -No signs of sepsis at this time -Monitor CBC Chest pain, atypical, resolved -Patient with increased risk factors include age, male, hypertension, hyperlipidemia, diabetes -Patient been ruled out for acute coronary event with serial cardiac enzymes that have remained negative -Serial EKGs reviewed by myself which shows sinus rhythm without any changes -Myocardial perfusion study was performed and indicated -Patient will continue on aspirin, nitroglycerin as needed, [place] and morphine for pain -Continue monitor telemetry -Continue O2 supplementation if needed Hypertension, hyperlipidemia -Blood pressure mildly elevated likely secondary to pain -Home medications were continued -We will increase up Prinivil 20 mg twice daily Diabetes -Accu-Cheks with sliding scale insulin -Diabetic diet DVT prevention -Sequential compression devices
[2018-02-12] MEDS ORDERED: Ketorolac Inj 30 MG/ML (IVP) Vial IV.PUSH ONE (12:00)
[2018-02-12] MEDS ORDERED: Lidocaine PF 1% Inj 5 ML Syringe INFILTRATN ONE (12:00)
--- NOTE | 2018-02-12 14:42 | P.DCO ---
- Home Health Nursing Order: Wound care and dressing changes - Certification I have seen patient Umang Gagnon on 02/12/18. My clinical findings support the need for the requested home health care services because: Infection with risk of complications I certify that my clinical findings support that this patient is homebound because: Unable to use public transportation
[2018-02-12] MEDS: Lisinopril 20 MG Tablet PO SCH (20:08)
[2018-02-12] MEDS ORDERED: VANCOMYCIN TROUGH OTHER ONE (21:45)
[2018-02-13] MEDS ORDERED: Bupivacaine/Epinephrine Inj 0.25% 50 ML Vial ONE (07:09)
[2018-02-13] MEDS ORDERED: Neomycin/Polymyxin G.U. Irrigant 1 ML Ampul ONE (07:09)
[2018-02-13] MEDS ORDERED: Metoprolol Tartrate 25 MG Tablet PO SCH (07:15)
[2018-02-13] MEDS ORDERED: Chlorhexidine Gluconate 2% 1 Pack (2 Cloths) TOPICAL SCH (07:15)
[2018-02-13] MEDS ORDERED: Sodium Chlor 0.9% Inj 500 ML IV.SIG SCH (08:00)
--- NOTE | 2018-02-13 08:26 | P.OP ---
- Preoperative Diagnosis (1) Abscess of axilla, left - Postoperative Diagnosis (1) Abscess of axilla, left Date of procedure: 02/13/18 Procedure: Irrigation and debridement left chest wall abscess with excision less than 25 cm subcutaneous tissue Anesthesia: other (Laryngeal mask anesthesia) Surgeon: Jayesh Waters MD Emergency Medicine Medical Director: None Estimated blood loss (mL): 10 IV fluids (mL): 400 Pathology: none sent Operation and Findings: Patient was taken to the operating room and placed on the operating table in the supine position. After an adequate level of laryngeal mask anesthesia was instituted, the patient was placed in right lateral decubitus position. The wound VAC was taken off of the left chest wall and the wound prepped and draped. Timeout was taken, confirming the correct patient, site, and procedure to be performed. Skin and subcutaneous tissue was infiltrated with local anesthetic and 2 L of antibiotic irrigation was utilized. 2 small tunnels were re-opened and irrigated copiously. Both appeared clean and did not have any purulent material. Subcutaneous tissue under and around the patient's original small opening was debrided back to viable tissue. Final dimensions of the wound were 4 cm wide by 11 cm long by 3 cm. A wound VAC was reapplied with sponges cut to fit the defect. The wound was also closed slightly on both ends with 0 Prolene suture. The VAC dressing was reapplied with good seal. The patient was extubated and taken back to the recovery room in stable condition. Sponge needle and instrument counts were reported to be correct.
[2018-02-13] MEDS ORDERED: fentaNYL Citrate Inj 100 MCG/2 ML Ampul ONE (08:35)
[2018-02-13] MEDS ORDERED: Morphine Inj 4 MG/ML Vial ONE (09:16)
--- NOTE | 2018-02-13 10:15 | P.PN ---
Subjective Interval history: Patient seen and examined today for follow-up on left axilla abscess. Patient just returned back from the OR. Patient had wound VAC changed. He still little tired and somnolent from the anesthesia. Patient denies any new complaints. Vital signs are stable, patient remains afebrile. Physical Exam Vital signs: Vital Signs 02/12/18 12:00 02/12/18 16:00 02/12/18 20:28 Temperature 96.4 F L 97.4 F L 97.1 F L Pulse Rate 59 L 62 62 Respiratory Rate 20 20 18 Blood Pressure 165/85 H 173/84 H 157/74 H Pulse Oximetry 92 L 93 L 94 L 02/13/18 00:00 02/13/18 06:57 02/13/18 08:30 Temperature 96.3 F L 98.0 F Pulse Rate 63 56 L Respiratory Rate 18 20 Blood Pressure 130/69 170/83 H Pulse Oximetry 93 L 95 97 02/13/18 08:32 02/13/18 09:00 02/13/18 09:15 Temperature 98.1 F Pulse Rate 60 58 L 61 Respiratory Rate 14 14 14 Blood Pressure 142/85 H 143/83 H 146/85 H Pulse Oximetry 97 97 97 02/13/18 09:30 Temperature Pulse Rate 59 L Respiratory Rate 14 Blood Pressure 142/84 H Pulse Oximetry 97 Intake & Output 02/12/18 02/13/18 02/13/18 18:59 06:59 18:59 Intake Total 2096 / 2096 1715 / 1715 500 / 500 Output Total 900 / 900 800 / 800 Balance 1196 / 1196 915 / 915 500 / 500 Weight 106.9 kg Intake: IV 1515 / 1515 1515 / 1515 NS + KCl 20 mEq Inj 1,000 ML @ 1000 / 1000 1000 / 1000 84 mls/hr IV.CONT .[id number] [facility] Rx#:[id number] Vancomycin Inj 1,500 MG In NS 515 / 515 515 / 515 Inj 500 ML @ 250 mls/hr IV.SIG Q12H [facility] Rx#:[id number] Oral 581 / 581 200 / 200 Anesthesia Amount 500 / 500 Output: Urine 900 / 900 800 / 800 Other: Mode Setting Left Axilla Continuous Continuous Continuous Date of Last Bowel Movement 02/11/18 # Bowel Movements 1 2 Narrative: GENERAL: Well-developed, well-nourished, in no acute distress. alert and orientated HEENT: Head is normocephalic without any lesions or masses noted. Facial features are symmetric. Eyes: Extraocular muscles are intact. Conjunctivae were clear. NECK: Supple without any masses. Trachea midline no deviation. No JVD, CARDIAC: Regular rhythm, regular rate. S1/S2 are heard. No murmurs gallops or rubs. LUNGS: Clear to auscultation bilaterally. No wheeze, rhonchi or rales. No use of accessory muscles on inspiration or expiration. ABDOMEN: Soft, nontender. Nondistended. Bowel sounds heard in all 4 quadrants. No organomegaly or masses. Negative rebound, negative guarding EXTREMITIES: No edema, pulses are equal bilaterally. No cyanosis or clubbing NEUROLOGY: Mood and affect appear appropriate. Cranial nerves II through XII grossly intact. Moving all extremities, speech is clear SKIN: Wound VAC in place in the left axilla/thorax region Results - Labs CBC & Chem 7: 02/10/18 06:13 02/12/18 05:00 Laboratory Results - last 24 hr 02/12/18 02/12/18 02/12/18 11:54 16:08 20:17 POC Glucose 147 H 134 H 140 H Vancomycin Trough 02/12/18 21:45 POC Glucose Vancomycin Trough 15.1 H Microbiology 02/10/18 08:33 Tissue - Axilla Gram Stain - Final 02/10/18 08:33 Tissue - Axilla Wound Culture - Final S. aureus MRSA Assessment and Plan - Assessment (1) Chest pain Code(s): R07.9 - Chest pain, unspecified Status: Inactive (2) Cellulitis of axilla, left Code(s): L03.112 - Cellulitis of left axilla Status: Inactive (3) Leukocytosis Code(s): D72.829 - Elevated white blood cell count, unspecified Status: Acute - Plan Left thorax mass with cellulitis -Initial soft tissue ultrasound shows phlegmon without any abscess, due to the size worsening and more painful we obtained another ultrasound of the soft tissue which shows a heterogeneous subcutaneous collection that had increased in size -General surgery was consulted who is following the patient -Continue vancomycin IV with pharmacy consult -Wound culture with MRSA, sensitive to vancomycin -Blood cultures negative for 4 day -General surgery took the patient to OR today for wound VAC change. Discussed with Dr. Waters who indicated the patient may start Lovenox tonight, anticipate discharge home on Monday with home health care. He indicated that they will arrange for home health care Leukocytosis, resolved -Likely secondary to above infection -No signs of sepsis at this time -Monitor CBC Chest pain, atypical, resolved -Patient with increased risk factors include age, male, hypertension, hyperlipidemia, diabetes -Patient been ruled out for acute coronary event with serial cardiac enzymes that have remained negative -Serial EKGs reviewed by myself which shows sinus rhythm without any changes -Myocardial perfusion study was performed and indicated -Patient will continue on aspirin, nitroglycerin as needed, [place] and morphine for pain -Continue monitor telemetry -Continue O2 supplementation if needed Hypertension, hyperlipidemia -Blood pressure mildly elevated likely secondary to pain -Home medications were continued -Prinivil 20 mg twice daily Diabetes -Accu-Cheks with sliding scale insulin -Diabetic diet DVT prevention -Sequential compression devices
[2018-02-13] MEDS: Vancomycin Inj 1,500 MG in Sodium Chlor 0.9% Inj 500 ML IV.SIG SCH (10:51)
[2018-02-13] MEDS: Lisinopril 20 MG Tablet PO SCH ×2 (10:52→20:45)
[2018-02-13] MEDS: amLODIPine 5 MG Tablet PO SCH (10:53)
[2018-02-13] MEDS: Insulin NovoLOG Aspart Correctional Sugar Inj SQ SCH ×4 (19:22→20:55)
[2018-02-13] MEDS: Vancomycin Inj 1,250 MG in Sodium Chlor 0.9% Inj 250 ML IV.SIG SCH (21:01)
[2018-02-14] MEDS: Insulin NovoLOG Aspart Correctional Sugar Inj SQ SCH ×4 (08:28→20:47)
[2018-02-14] MEDS: Lisinopril 20 MG Tablet PO SCH ×2 (09:21→20:48)
[2018-02-14] MEDS: amLODIPine 5 MG Tablet PO SCH (09:21)
--- NOTE | 2018-02-14 09:26 | P.PN ---
Subjective Interval history: 62-year-old male who is seen in follow-up today for left chest abscess. Patient states that he is doing much better today. Pain is much better controlled. He is eating well. Blood pressure still remaining mildly elevated despite treatment, patient remains afebrile. Physical Exam Vital signs: Vital Signs 02/13/18 09:30 02/13/18 12:00 02/13/18 16:00 Temperature 97.1 F L 96.3 F L Pulse Rate 59 L 56 L 67 Respiratory Rate 14 18 18 Blood Pressure 142/84 H 156/93 H 141/89 H Pulse Oximetry 97 96 96 02/13/18 18:00 02/13/18 18:06 02/13/18 22:01 Temperature 96.6 F L Pulse Rate 67 Respiratory Rate 20 20 18 Blood Pressure 155/80 H Pulse Oximetry 92 L 02/14/18 00:00 02/14/18 08:00 Temperature 97.4 F L 96.4 F L Pulse Rate 64 56 L Respiratory Rate 18 20 Blood Pressure 157/74 H 162/90 H Pulse Oximetry 94 L 97 Intake & Output 02/13/18 02/14/18 02/14/18 18:59 06:59 18:59 Intake Total 1974 2262.5 / 2262.5 1000 / 1000 Output Total 1999 450 / 450 Balance -25 / -25 1812.5 / 1812.5 1000 / 1000 Weight 106.9 kg Intake: IV 515 / 515 2262.5 / 2262.5 1000 / 1000 NS + KCl 20 mEq Inj 1,000 ML @ 1000 / 1000 1000 / 1000 84 mls/hr IV.CONT .[id number] [facility] Rx#:[id number] LR 1000 mL Inj 1,000 ML @ 30 1000 / 1000 mls/hr IV.SIG .Q24H [facility] Rx#: [id number] Vancomycin Inj 1,250 MG In NS 262.5 / 262.5 Inj 250 ML @ 250 mls/hr IV.SIG Q12H [facility] Rx#:[id number] Vancomycin Inj 1,500 MG In NS 515 / 515 Inj 500 ML @ 250 mls/hr IV.SIG Q12H [facility] Rx#:[id number] Oral 960 / 960 Anesthesia Amount 500 / 500 Output: Urine 1999 450 / 450 Other: Mode Setting Left Axilla Continuous Continuous Date of Last Bowel Movement 02/11/18 # Bowel Movements 0 Results - Labs CBC & Chem 7: 02/10/18 06:13 02/14/18 05:22 Laboratory Results - last 24 hr 02/13/18 02/13/18 02/13/18 12:32 17:53 20:43 Creatinine Estimated GFR POC Glucose 195 H 186 H 172 H 02/14/18 02/14/18 05:22 08:07 Creatinine 0.99 Estimated GFR 76 L POC Glucose 135 H - Procedures 02/10/18:Incision and drainage of left axillary abscess with debridement of less than 25 cm subcutaneous tissue Placement of negative pressure VAC device 02/13/18:Irrigation and debridement left chest wall abscess with excision less than 25 cm subcutaneous tissue Assessment and Plan - Assessment (1) Chest pain Code(s): R07.9 - Chest pain, unspecified Status: Inactive (2) Cellulitis of axilla, left Code(s): L03.112 - Cellulitis of left axilla Status: Inactive (3) Leukocytosis Code(s): D72.829 - Elevated white blood cell count, unspecified Status: Acute - Plan Left thorax mass with cellulitis -Initial soft tissue ultrasound shows phlegmon without any abscess, due to the size worsening and more painful we obtained another ultrasound of the soft tissue which shows a heterogeneous subcutaneous collection that had increased in size -General surgery was consulted who is following the patient -Continue vancomycin IV with pharmacy consult -Wound culture with MRSA, sensitive to vancomycin -Blood cultures negative for 5 day -General surgery did wound VAC change. Discussed with Dr. Waters who indicated the patient, anticipate discharge home on Monday with home health care. He indicated that they will arrange for home health care Leukocytosis, resolved -Likely secondary to above infection -No signs of sepsis at this time -Monitor CBC Chest pain, atypical, resolved -Patient with increased risk factors include age, male, hypertension, hyperlipidemia, diabetes -Patient been ruled out for acute coronary event with serial cardiac enzymes that have remained negative -Serial EKGs reviewed by myself which shows sinus rhythm without any changes -Myocardial perfusion study was performed and indicated -Patient will continue on aspirin, nitroglycerin as needed, [place] and morphine for pain -Continue monitor telemetry -Continue O2 supplementation if needed Hypertension, hyperlipidemia -Blood pressure mildly elevated likely secondary to pain -Home medications were continued -Prinivil 20 mg twice daily -Increase to Norvasc 10 mg daily Diabetes -Accu-Cheks with sliding scale insulin -Diabetic diet DVT prevention -Sequential compression devices -Subcutaneous Lovenox
[2018-02-14] MEDS: Vancomycin Inj 1,250 MG in Sodium Chlor 0.9% Inj 250 ML IV.SIG SCH ×2 (10:02→21:23)
[2018-02-14] MEDS: Enoxaparin Inj 40 MG/0.4 ML Syringe SQ SCH (10:59)
--- NOTE | 2018-02-14 14:22 | P.DCO ---
- Home Health Nursing Order: Wound care and dressing changes Instructions: LEFT midaxillary region: Moist to dry dressing changes; change BID; can shower in between dressing changes---remove packing first Nursing visits for dressing change and patient/family teaching - Certification I have seen patient Umang Gagnon on 02/14/18. My clinical findings support the need for the requested home health care services because: Patient has SOB, Deconditioned with increased weakness I certify that my clinical findings support that this patient is homebound because: Post-op weakness
--- NOTE | 2018-02-14 15:30 | P.PNGS ---
<Yessenia Liriano - Last Filed: 02/14/18 15:26> Subjective Interval history: Resting in bed; no issues; pain better today Physical Exam Vital signs: Vital Signs 02/13/18 16:00 02/13/18 18:00 02/13/18 18:06 Temperature 96.3 F L Pulse Rate 67 Respiratory Rate 18 20 20 Blood Pressure 141/89 H Pulse Oximetry 96 02/13/18 22:01 02/14/18 00:00 02/14/18 08:00 Temperature 96.6 F L 97.4 F L 96.4 F L Pulse Rate 67 64 56 L Respiratory Rate 18 18 20 Blood Pressure 155/80 H 157/74 H 162/90 H Pulse Oximetry 92 L 94 L 97 02/14/18 12:00 02/14/18 12:28 Temperature 97.3 F L Pulse Rate 57 L Respiratory Rate 20 Blood Pressure 171/92 H 156/78 H Pulse Oximetry 95 Intake & Output 02/13/18 02/14/18 02/14/18 18:59 06:59 18:59 Intake Total 1974 2262.5 / 2262.5 1262.5 / 1262.5 Output Total 1999 450 / 450 Balance -25 / -25 1812.5 / 1812.5 1262.5 / 1262.5 Weight 106.9 kg Intake: IV 515 / 515 2262.5 / 2262.5 1262.5 / 1262.5 NS + KCl 20 mEq Inj 1,000 ML @ 1000 / 1000 1000 / 1000 84 mls/hr IV.CONT .[id number] [facility] Rx#:[id number] LR 1000 mL Inj 1,000 ML @ 30 1000 / 1000 mls/hr IV.SIG .Q24H [facility] Rx#: [id number] Vancomycin Inj 1,250 MG In NS 262.5 / 262.5 262.5 / 262.5 Inj 250 ML @ 250 mls/hr IV.SIG Q12H [facility] Rx#:[id number] Vancomycin Inj 1,500 MG In NS 515 / 515 Inj 500 ML @ 250 mls/hr IV.SIG Q12H [facility] Rx#:[id number] Oral 960 / 960 Anesthesia Amount 500 / 500 Output: Urine 1999 450 / 450 Other: Mode Setting Left Axilla Continuous Continuous Continuous Date of Last Bowel Movement 02/11/18 # Bowel Movements 0 Narrative: Alert and awake Cardio: RRR Resp: CTAB Abd:Soft non tender LEFT midaxillary--- Wound Vac in place with good seal Assessment and Plan - Plan 62 year old male with large LEFT midaxillary indurated area -POD1 I&D and Wound Vac placement of LEFT midaxillary region -Regular diet -Continue glucose control -Plan to transition to moist to dry dressing changes on Monday at the bedside -Consult for C <Jayesh Waters - Last Filed: 02/15/18 09:46> Physical Exam Vital signs: Vital Signs 02/14/18 12:00 02/14/18 12:28 02/14/18 16:00 Temperature 97.3 F L 96.5 F L Pulse Rate 57 L 59 L Respiratory Rate 20 20 Blood Pressure 171/92 H 156/78 H 123/67 Pulse Oximetry 95 95 02/14/18 20:00 02/14/18 22:30 02/15/18 00:00 Temperature 96.8 F L 98.1 F Pulse Rate 59 L 59 L Respiratory Rate 20 20 18 Blood Pressure 167/89 H 144/79 H Pulse Oximetry 96 95 02/15/18 08:05 Temperature Pulse Rate 60 Respiratory Rate 21 Blood Pressure 184/93 H Pulse Oximetry 96 Intake & Output 02/14/18 02/15/18 02/15/18 18:59 06:59 18:59 Intake Total 1943.5 / 1943.5 1262.5 / 1262.5 240 / 240 Output Total 700 / 700 1850 / 1850 Balance 1243.5 / 1243.5 -587.5 / -587.5 240 / 240 Intake: IV 1262.5 / 1262.5 1262.5 / 1262.5 NS + KCl 20 mEq Inj 1,000 ML @ 1000 / 1000 1000 / 1000 84 mls/hr IV.CONT .[id number] [facility] Rx#:[id number] Vancomycin Inj 1,250 MG In NS 262.5 / 262.5 262.5 / 262.5 Inj 250 ML @ 250 mls/hr IV.SIG Q12H [facility] Rx#:[id number] Oral 681 / 681 240 / 240 Output: Urine 700 / 700 1850 / 1850 Other: Mode Setting Left Axilla Continuous Continuous Continuous # Voids 1 Date of Last Bowel Movement 02/14/18 02/14/18 # Bowel Movements 1 1 Assessment and Plan - Plan Wound VAC intact, pain improving every day No erythema around wound Plan as above
[2018-02-15] MEDS: Insulin NovoLOG Aspart Correctional Sugar Inj SQ SCH ×4 (07:46→21:31)
[2018-02-15] MEDS: Lisinopril 20 MG Tablet PO SCH ×2 (07:59→21:32)
[2018-02-15] MEDS: Enoxaparin Inj 40 MG/0.4 ML Syringe SQ SCH (07:59)
[2018-02-15] MEDS ORDERED: Pharmacy Ordered Lab Info OTHER ONE (09:45)
--- NOTE | 2018-02-15 09:50 | P.PN ---
Subjective Interval history: Feeling well, tolerating diet Physical Exam Vital signs: Vital Signs 02/14/18 12:00 02/14/18 12:28 02/14/18 16:00 Temperature 97.3 F L 96.5 F L Pulse Rate 57 L 59 L Respiratory Rate 20 20 Blood Pressure 171/92 H 156/78 H 123/67 Pulse Oximetry 95 95 02/14/18 20:00 02/14/18 22:30 02/15/18 00:00 Temperature 96.8 F L 98.1 F Pulse Rate 59 L 59 L Respiratory Rate 20 20 18 Blood Pressure 167/89 H 144/79 H Pulse Oximetry 96 95 02/15/18 08:05 Temperature Pulse Rate 60 Respiratory Rate 21 Blood Pressure 184/93 H Pulse Oximetry 96 Intake & Output 02/14/18 02/15/18 02/15/18 18:59 06:59 18:59 Intake Total 1943.5 / 1943.5 1262.5 / 1262.5 240 / 240 Output Total 700 / 700 1850 / 1850 Balance 1243.5 / 1243.5 -587.5 / -587.5 240 / 240 Intake: IV 1262.5 / 1262.5 1262.5 / 1262.5 NS + KCl 20 mEq Inj 1,000 ML @ 1000 / 1000 1000 / 1000 84 mls/hr IV.CONT .[id number] [facility] Rx#:[id number] Vancomycin Inj 1,250 MG In NS 262.5 / 262.5 262.5 / 262.5 Inj 250 ML @ 250 mls/hr IV.SIG Q12H [facility] Rx#:[id number] Oral 681 / 681 240 / 240 Output: Urine 700 / 700 1850 / 1850 Other: Mode Setting Left Axilla Continuous Continuous Continuous # Voids 1 Date of Last Bowel Movement 02/14/18 02/14/18 # Bowel Movements 1 1 Results - Labs CBC & Chem 7: 02/10/18 06:13 02/14/18 05:22 Laboratory Results - last 24 hr 02/14/18 02/14/18 02/14/18 12:25 16:06 20:46 POC Glucose 148 H 126 H 144 H 02/15/18 07:44 POC Glucose 124 H - Procedures 02/10/18:Incision and drainage of left axillary abscess with debridement of less than 25 cm subcutaneous tissue Placement of negative pressure VAC device 02/13/18:Irrigation and debridement left chest wall abscess with excision less than 25 cm subcutaneous tissue Assessment and Plan - Assessment (1) Abscess of axilla, left Code(s): L02.412 - Cutaneous abscess of left axilla Status: Acute - Plan Remove VAC tomorrow; start daily dressing changes at home. Home with PO pain meds and Bactrim PO ROV one week my office. Discussed Condition With: Patient ASHU Fitzgerald
[2018-02-15] MEDS: Vancomycin Inj 1,250 MG in Sodium Chlor 0.9% Inj 250 ML IV.SIG SCH (10:08)
[2018-02-15] MEDS: amLODIPine 10 MG Tablet PO SCH (10:08)
--- NOTE | 2018-02-15 12:01 | P.DS ---
Date of admission: 02/09/18 16:36 Primary care physician: Yandy Primary Care Physician Attending physician on discharge: Beverly Srivastava Anticipated date of discharge: 02/16/18 Brief History from admission: 62-year-old male with known history of hypertension, hyperlipidemia, diabetes, diabetic neuropathy who presented to the emergency department for evaluation of chest pain. Patient states that his original symptoms started 5 days ago when he started developing in sore spot on his left rib cage in the mid axillary line. It started progressively getting larger and started having increased pain spreading into his anterior chest. He had been using drawing salve on it without any significant improvement. And last night approximately 730 he started developing pain in the middle part of his chest that is radiating into his back with associated nausea, intermittent diaphoresis. Denies any shortness of breath or dyspnea. States that the pain was 8/10 on a pain scale and remained constant since last evening. Patient can follow that the pain was because of the infection in abscess that he has on the left side of the rib cage. Patient did have workup done emergency department and found to have leukocytosis and cellulitis. Cardiac workup was unremarkable. EKG showed normal sinus rhythm. Is recommended that the patient be observed in the hospital for further evaluation and management. DS: Diagnosis - Discharge Diagnosis (1) Chest pain Status: Inactive (2) Cellulitis of axilla, left Status: Inactive (3) Leukocytosis Status: Acute DS: Medications - Discharge Medications Prescriptions: amlodipine [Norvasc] 10 mg PO DAILY #30 tab hydrocodone-acetaminophen 1 tab PO Q4H PRN #12 tab PRN Reason: Acute Pain lisinopril 20 mg PO BID #60 tab sulfamethoxazole-trimethoprim [Bactrim DS] 1 tab PO BID #20 tab DS: Summary Hospital Course: 62-year-old male who originally presented to the emergency department because of painful area under his left axilla thorax. Patient indicates that that area was also causing pain into the left side of his chest. Patient did have increased risk factors for underlying cardiac disease with age, male, hypertension, hypovolemia, diabetes. Patient ruled out for acute coronary event with serial cardiac enzymes remain negative, serial EKG shows sinus rhythm without any changes. Patient did undergo myocardial perfusion study which did not indicate any ischemia with ejection fraction 52%. Patient was started on empirical antibiotics with vancomycin for left axilla wound. He did have some mild serosanguineous. Ultrasounds were performed on a daily basis to was phlegmon shown on the first day however area continued to increase in size. Became more painful. General surgery was consulted who took the patient to the OR and did an incision and debridement of the area. As indicated that there was not much copious purulence that was removed. Patient was continued with a wound VAC. Cultures were ascertained which did show MRSA. Patient continued on vancomycin during his entire stay at the hospital. Patient was taken back to the OR for removal and downsizing of the wound VAC. Patient tolerating treatment well. Area continues to improve. Surgical plans to remove wound VAC tomorrow morning and discharged home. This was discussed with the surgeon today. Anticipate continuation of Bactrim for at least 10 days upon discharge. Patient does feel much better. He is very eager to go home. We will discharge once wound VAC has been removed. - Time Spent with Patient Total time spent providing and/or coordinating discharge services: - Quality: VTE Deep Vein Thrombosis/Pulmonary Embolism Present on Admission: No Exam Vital signs: Vital Signs 02/14/18 12:00 02/14/18 12:28 02/14/18 16:00 Temperature 97.3 F L 96.5 F L Pulse Rate 57 L 59 L Respiratory Rate 20 20 Blood Pressure 171/92 H 156/78 H 123/67 Pulse Oximetry 95 95 02/14/18 20:00 02/14/18 22:30 02/15/18 00:00 Temperature 96.8 F L 98.1 F Pulse Rate 59 L 59 L Respiratory Rate 20 20 18 Blood Pressure 167/89 H 144/79 H Pulse Oximetry 96 95 02/15/18 08:05 Temperature Pulse Rate 60 Respiratory Rate 21 Blood Pressure 184/93 H Pulse Oximetry 96 Intake & Output 02/14/18 02/15/18 02/15/18 18:59 06:59 18:59 Intake Total 1943.5 / 1943.5 1262.5 / 1262.5 1240 / 1240 Output Total 700 / 700 1850 / 1850 Balance 1243.5 / 1243.5 -587.5 / -587.5 1240 / 1240 Intake: IV 1262.5 / 1262.5 1262.5 / 1262.5 1000 / 1000 NS + KCl 20 mEq Inj 1,000 ML @ 1000 / 1000 1000 / 1000 1000 / 1000 84 mls/hr IV.CONT .[id number] [facility] Rx#:[id number] Vancomycin Inj 1,250 MG In NS 262.5 / 262.5 262.5 / 262.5 Inj 250 ML @ 250 mls/hr IV.SIG Q12H [facility] Rx#:[id number] Oral 681 / 681 240 / 240 Output: Urine 700 / 700 1850 / 1850 Other: Mode Setting Left Axilla Continuous Continuous Continuous # Voids 1 Date of Last Bowel Movement 02/14/18 02/14/18 # Bowel Movements 1 1 Narrative: GENERAL: Well-developed, well-nourished, in no acute distress. alert and orientated HEENT: Head is normocephalic without any lesions or masses noted. Facial features are symmetric. Eyes: Extraocular muscles are intact. Conjunctivae were clear. NECK: Supple without any masses. Trachea midline no deviation. No JVD, CARDIAC: Regular rhythm, regular rate. S1/S2 are heard. No murmurs gallops or rubs. LUNGS: Clear to auscultation bilaterally. No wheeze, rhonchi or rales. No use of accessory muscles on inspiration or expiration. ABDOMEN: Soft, nontender. Nondistended. Bowel sounds heard in all 4 quadrants. No organomegaly or masses. Negative rebound, negative guarding EXTREMITIES: No edema, pulses are equal bilaterally. No cyanosis or clubbing NEUROLOGY: Mood and affect appear appropriate. Cranial nerves II through XII grossly intact. Moving all extremities, speech is clear SKIN: Wound VAC in place in the left axilla/thorax region Results Procedures completed during hospitalization: 02/10/18:Incision and drainage of left axillary abscess with debridement of less than 25 cm subcutaneous tissue Placement of negative pressure VAC device 02/13/18:Irrigation and debridement left chest wall abscess with excision less than 25 cm subcutaneous tissue Labs on day of discharge: Labs from last 24 hours 02/15/18 02/15/18 02/14/18 10:07 07:44 20:46 POC Glucose 124 H 144 H Vancomycin Trough Pending 02/14/18 02/14/18 16:06 12:25 POC Glucose 126 H 148 H Vancomycin Trough - Impressions ITS Impressions Myocardial Perfusion Scan Nuc Med 02/08/18 00:00 CONCLUSION: 1. Negative examination. 2. No evidence of stressed induced or resting perfusion abnormalities. 3. Normal ejection fraction and wall motion. Soft Tissue Ultrasound 02/09/18 00:00 CONCLUSION: Heterogeneous subcutaneous collection has increased in size since yesterday's examination. Again, it does not appear well organized for percutaneous drainage. The appearance is suspicious for infection. Discharge Plan - Discharge Disposition Patient Disposition: W/Home Health Service - Discharge Condition Condition: Stable - Discharge Order Discharge Orders: Discharge Order (Routine); Ordered 02/16/18 Ordered By: Bandar Spicer - Discharge Details Anticipated Discharge Date: 02/16/18 - Physicians Team Primary Care Provider: Primary Care Yandy Freitas Attending Provider: Beverly Srivastava Other Providers: Rogelio Reyes MD - Rxs /Orders / Referrals /Forms Prescriptions: New amlodipine [Norvasc] 10 mg Tablet 10 mg PO DAILY Qty: 30 RF: 0 hydrocodone-acetaminophen 7.5-325 mg Tablet 1 tab PO Q4H PRN (Reason: Acute Pain) Qty: 12 RF: 0 lisinopril 20 mg Tablet 20 mg PO BID Qty: 60 RF: 0 sulfamethoxazole-trimethoprim [Bactrim DS] 800-160 mg Tablet 1 tab PO BID Qty: 20 RF: 0 Continue hydrochlorothiazide 12.5 mg Tablet 12.5 mg PO DAILY metformin 500 mg Tablet 500 mg PO TID simvastatin [Zocor] 20 mg Tablet 20 mg PO QPM Discontinued amlodipine 5 mg Tablet 5 mg PO DAILY lisinopril 30 mg Tablet 30 mg PO DAILY Referrals: Jayesh Waters MD [GENERAL SURGERY] - See Instructions (Follow-up with surgeon in 1 week) Primary Care Yandy Freitas [Primary Care Provider] - See Instructions - Discharge Instructions Patient Printed Instructions: MRSA (Methicillin-Resistant Staphylococcus Aureus ) (GEN), Incision and Drainage (DC) - Post Discharge Care Plan Care Plan Goals: Your Health Problems: Goals to Promote Your Health: * To prevent worsening of your condition * To maintain your health at the optimal level Directions to Meet Your Goals: * Take your medications as prescribed * Follow your dietary instruction * Follow activity as directed * Keep your appointments as scheduled * Take your immunizations and boosters as scheduled * If your symptoms worsen call your PCP * If no PCP go to Urgent Care or Emergency Room Smoking is dangerous to your health. Avoid second hand smoke. You may reach the 24-hour crisis hotline for domestic abuse at .
[2018-02-15 13:05] LABS: Chloride 102 meq/L (98-107); Potassium 3.8 meq/L (3.5-5.1); Sodium 141 meq/L (136-145)
[2018-02-15 13:09] LABS: Baso % (Auto) 0.4 % (0.0-2.0); Eos # (Auto) 0.2 th/mm3 (0.0-0.4); Eos % (Auto) 2.6 % (0.0-4.0); Hematocrit 35.3 % (39.0-51.0); Hemoglobin 12.1 gm/dL (13.0-17.0); Lymph # (Auto) 1.3 th/mm3 (1.0-4.8); Lymph % (Auto) 13.8 % (9.0-44.0); Mean Corpuscular HGB Conc 34.2 % (32.0-36.0); Mean Corpuscular Hemoglobin 30.6 pg (27.0-34.0); Mean Corpuscular Volume 89.7 fL (80.0-100.0); Mean Platelet Volume 7.5 fL (7.0-11.0); Mono # (Auto) 0.7 th/mm3 (0.0-0.9); Mono % (Auto) 7.9 % (0.0-8.0); Neut % (Auto) 75.3 % (16.0-70.0); Platelet Count 543 th/mm3 (150-450); Red Blood Count 3.94 mil/mm3 (4.50-5.90); White Blood Count 9.2 th/mm3 (4.0-11.0)
[2018-02-15 13:10] LABS: Calcium 8.7 mg/dL (8.5-10.1)
[2018-02-15 13:11] LABS: Anion Gap 8 meq/L (5-15); Blood Urea Nitrogen 9 mg/dL (7-18); Carbon Dioxide 31.3 meq/L (21.0-32.0); Glucose,Random 153 mg/dL (74-106)
[2018-02-15 13:14] LABS: Glomerular Filtration Rate 85 mL/min (>89)
[2018-02-15 13:39] LABS: Creatine Kinase 31 U/L (39-308)
[2018-02-16 05:56] LABS: Glomerular Filtration Rate Greater Than 89 mL/min (>89)
[2018-02-16] MEDS ORDERED: Vancomycin Inj 1,750 MG in Sodium Chlor 0.9% Inj 500 ML IV.SIG SCH (06:00)
[2018-02-16] MEDS: Insulin NovoLOG Aspart Correctional Sugar Inj SQ SCH (08:28)
[2018-02-16] MEDS: Lisinopril 20 MG Tablet PO SCH (08:36)
[2018-02-16] MEDS: amLODIPine 10 MG Tablet PO SCH (08:37)
[2018-02-16] MEDS: Enoxaparin Inj 40 MG/0.4 ML Syringe SQ SCH (08:37)
--- NOTE | 2018-02-16 09:12 | P.PNGS ---
<Yessenia Liriano - Last Filed: 02/16/18 09:09> Subjective Interval history: Resting in bed; no issues; ready to go home Physical Exam Vital signs: Vital Signs 02/15/18 12:00 02/15/18 12:19 02/15/18 17:32 Temperature 97.6 F 96.9 F L Pulse Rate 61 63 61 Respiratory Rate 21 18 20 Blood Pressure 170/83 H 172/100 H 170/87 H Pulse Oximetry 96 96 02/15/18 20:00 02/16/18 00:00 02/16/18 08:00 Temperature 96.8 F L 96.5 F L 97.8 F Pulse Rate 63 58 L 96 H Respiratory Rate 18 18 18 Blood Pressure 145/99 H 134/95 H 155/85 H Pulse Oximetry 92 L 93 L 96 Intake & Output 02/15/18 02/16/18 02/16/18 18:59 06:59 18:59 Intake Total 2462.5 / 2462.5 1000 / 1000 500 / 500 Output Total 1002 / 1002 Balance 1460.5 / 1460.5 1000 / 1000 500 / 500 Weight 106.6 kg Intake: IV 1262.5 / 1262.5 1000 / 1000 500 / 500 NS + KCl 20 mEq Inj 1,000 ML @ 1000 / 1000 1000 / 1000 84 mls/hr IV.CONT .[id number] [facility] Rx#:[id number] Vancomycin Inj 1,250 MG In NS 262.5 / 262.5 Inj 250 ML @ 250 mls/hr IV.SIG Q12H WILLIAM Rx#:[id number] Vancomycin Inj 1,750 MG In NS 500 / 500 Inj 500 ML @ 258.75 mls/hr IV. SIG Q18H WILLIAM Rx#:[id number] Oral 1200 / 1200 0 / 0 Output: Urine 1000 / 1000 Stool 2 / 2 Other: Mode Setting Left Axilla Continuous Continuous # Voids 4 Date of Last Bowel Movement 02/15/18 02/15/18 Narrative: Alert and awake Cardio: RRR Resp: CTAB Abd: soft non tender LET midaxillary area--- two black sponge pieces removed from wound---- wound bed clear without any exudate; loose packing placed in wound; covered with 4x4 gauze and ABD; secured in place with plastic tape Assessment and Plan - Assessment (1) Abscess of axilla, left Code(s): L02.412 - Cutaneous abscess of left axilla Status: Acute - Plan 62 year old male with large LEFT midaxillary indurated area -s/p I&D and Wound Vac placement of LEFT midaxillary region -Regular diet -Continue glucose control -Wound Vac removed; loose moist to dry dressing placed -GS clear for DC -[facility] -Follow up with Dr. Waters Feb 22 at 8:40AM <Jayesh Waters - Last Filed: 02/19/18 19:56> Assessment and Plan - Assessment (1) Abscess of axilla, left Code(s): L02.412 - Cutaneous abscess of left axilla Status: Acute - Plan The exam, history, and the medical decision-making described in the above note were completed with the assistance of the mid-level provider. I reviewed and agree with the findings presented. I attest that I had a [id number] encounter with the patient on the same day, and personally performed and documented my assessment and findings in the medical record.
--- NOTE | 2018-02-16 11:17 | P.PN ---
Subjective Interval history: Follow-up chest wall abscess. Patient seen and examined, general surgery nurse practitioner at bedside and change dressing. Okay to discharge home. Medically stable. Vital signs stable. No reports of any acute events overnight. Physical Exam Vital signs: Vital Signs 02/15/18 12:00 02/15/18 12:19 02/15/18 17:32 Temperature 97.6 F 96.9 F L Pulse Rate 61 63 61 Respiratory Rate 21 18 20 Blood Pressure 170/83 H 172/100 H 170/87 H Pulse Oximetry 96 96 02/15/18 20:00 02/16/18 00:00 02/16/18 08:00 Temperature 96.8 F L 96.5 F L 97.8 F Pulse Rate 63 58 L 96 H Respiratory Rate 18 18 18 Blood Pressure 145/99 H 134/95 H 155/85 H Pulse Oximetry 92 L 93 L 96 Intake & Output 02/15/18 02/16/18 02/16/18 18:59 06:59 18:59 Intake Total 2462.5 / 2462.5 1000 / 1000 500 / 500 Output Total 1002 / 1002 Balance 1460.5 / 1460.5 1000 / 1000 500 / 500 Weight 106.6 kg Intake: IV 1262.5 / 1262.5 1000 / 1000 500 / 500 NS + KCl 20 mEq Inj 1,000 ML @ 1000 / 1000 1000 / 1000 84 mls/hr IV.CONT .[id number] WILLIAM Rx#:[id number] Vancomycin Inj 1,250 MG In NS 262.5 / 262.5 Inj 250 ML @ 250 mls/hr IV.SIG Q12H [facility]IAM Rx#:[id number] Vancomycin Inj 1,750 MG In NS 500 / 500 Inj 500 ML @ 258.75 mls/hr IV. SIG Q18H WILLIAM Rx#:[id number] Oral 1200 / 1200 0 / 0 Output: Urine 1000 / 1000 Stool 2 / 2 Other: Mode Setting Left Axilla Continuous Continuous # Voids 4 Date of Last Bowel Movement 02/15/18 02/15/18 Narrative: GENERAL: Well-developed, well-nourished, in no acute distress. alert and orientated HEENT: Head is normocephalic without any lesions or masses noted. Facial features are symmetric. Eyes: Extraocular muscles are intact. Conjunctivae were clear. NECK: Supple without any masses. Trachea midline no deviation. No JVD, CARDIAC: Regular rhythm, regular rate. S1/S2 are heard. No murmurs gallops or rubs. LUNGS: Clear to auscultation bilaterally. No wheeze, rhonchi or rales. No use of accessory muscles on inspiration or expiration. ABDOMEN: Soft, nontender. Nondistended. Bowel sounds heard in all 4 quadrants. No organomegaly or masses. Negative rebound, negative guarding EXTREMITIES: No edema, pulses are equal bilaterally. No cyanosis or clubbing NEUROLOGY: Mood and affect appear appropriate. Cranial nerves II through XII grossly intact. Moving all extremities, speech is clear Results - Labs CBC & Chem 7: 02/15/18 12:49 02/16/18 05:19 Laboratory Results - last 24 hr 02/15/18 02/15/18 02/15/18 10:07 12:15 12:49 CBC w Diff Auto diff final WBC 9.2 RBC 3.94 L Hgb 12.1 L Hct 35.3 L MCV 89.7 MCH 30.6 MCHC 34.2 RDW 12.0 Plt Count 543 H D MPV 7.5 Neut % (Auto) 75.3 H Lymph % (Auto) 13.8 [place] % (Auto) 7.9 Eos % (Auto) 2.6 Baso % (Auto) 0.4 Neut # (Auto) 7.0 Lymph # (Auto) 1.3 [place] # (Auto) 0.7 Eos # (Auto) 0.2 Baso # (Auto) 0.0 WBC Differential . Differential Comment . Sodium Potassium Chloride Carbon Dioxide Anion Gap BUN Creatinine Estimated GFR POC Glucose 121 H Random Glucose Calcium Total Creatine Kinase Troponin I Vancomycin Trough 17.0 H 02/15/18 02/15/18 02/15/18 12:49 17:46 21:31 CBC w Diff WBC RBC Hgb Hct MCV MCH MCHC RDW Plt Count MPV Neut % (Auto) Lymph % (Auto) [place] % (Auto) Eos % (Auto) Baso % (Auto) Neut # (Auto) Lymph # (Auto) [place] # (Auto) Eos # (Auto) Baso # (Auto) WBC Differential Differential Comment Sodium 141 Potassium 3.8 Chloride 102 Carbon Dioxide 31.3 Anion Gap 8 BUN 9 Creatinine 0.90 Estimated GFR 85 L POC Glucose 135 H 128 H Random Glucose 153 H Calcium 8.7 Total Creatine Kinase 31 L Troponin I Less than 0.02 L Vancomycin Trough 02/16/18 02/16/18 05:19 07:35 CBC w Diff WBC RBC Hgb Hct MCV MCH MCHC RDW Plt Count MPV Neut % (Auto) Lymph % (Auto) [place] % (Auto) Eos % (Auto) Baso % (Auto) Neut # (Auto) Lymph # (Auto) [place] # (Auto) Eos # (Auto) Baso # (Auto) WBC Differential Differential Comment Sodium Potassium Chloride Carbon Dioxide Anion Gap BUN Creatinine 0.86 Estimated GFR Greater than 89 POC Glucose 140 H Random Glucose Calcium Total Creatine Kinase Troponin I Vancomycin Trough - Procedures 02/10/18:Incision and drainage of left axillary abscess with debridement of less than 25 cm subcutaneous tissue Placement of negative pressure VAC device 02/13/18:Irrigation and debridement left chest wall abscess with excision less than 25 cm subcutaneous tissue Assessment and Plan - Assessment (1) Chest pain Code(s): R07.9 - Chest pain, unspecified Status: Inactive (2) Cellulitis of axilla, left Code(s): L03.112 - Cellulitis of left axilla Status: Inactive (3) Leukocytosis Code(s): D72.829 - Elevated white blood cell count, unspecified Status: Acute - Plan Left thorax mass with cellulitis -Initial soft tissue ultrasound shows phlegmon without any abscess, due to the size worsening and more painful we obtained another ultrasound of the soft tissue which shows a heterogeneous subcutaneous collection that had increased in size -General surgery was consulted who is following the patient. -Continue vancomycin IV in hospital, Bactrim for home. -Wound culture with MRSA, sensitive to vancomycin -Blood cultures negative to date. Leukocytosis, resolved -Likely secondary to above infection -No signs of sepsis at this time -Monitor CBC Chest pain, atypical, resolved -Patient with increased risk factors include age, male, hypertension, hyperlipidemia, diabetes -Patient been ruled out for acute coronary event with serial cardiac enzymes that have remained negative -Serial EKGs reviewed by myself which shows sinus rhythm without any changes -Myocardial perfusion study was performed and negative. -Patient will continue on aspirin, nitroglycerin as needed, [place] and morphine for pain -Continue monitor telemetry Hypertension, hyperlipidemia -Blood pressure mildly elevated likely secondary to pain -Home medications were continued -Prinivil 20 mg twice daily -Continue Norvasc 10 mg daily Diabetes -Accu-Cheks with sliding scale insulin -Diabetic diet DVT prevention -Sequential compression devices -Subcutaneous Lovenox Discharge Planning: DC home today.
[2018-02-16] MEDS ORDERED: Lidocaine PF 1% Inj 5 ML Syringe INFILTRATN ONE (12:00)
--- NOTE | 2018-02-16 12:22 | ECG ---
Date Performed: 02/15/2018 Time Performed: 13:18:20 PTAGE: 62 years EKG: Sinus rhythm NONSPECIFIC T-WAVE ABNORMALITY BORDERLINE ECG PREVIOUS TRACING : 02/08/2018 17.05 Since the previous tracing, no significant change noted DOCTOR: Chuck Morrow Interpretating Date/Time 02/16/2018 12:20:23
[2018-02-18] MEDS ORDERED: VANCOMYCIN TROUGH OTHER ONE (11:45)
== END 2018-02-16 12:11 | disposition home health service (06) ==
LOC: PH3 06:20 → PHEDDLT 06:20
PROVIDERS: ADMIT Hospitalist; ATTEND Hospitalist